=== PATIENT | female | born 1965 | race African-American/Black ===

== ENCOUNTER 2017-07-12 11:05 | Emergency (ER) | payer OTHER, MEDICAID ==
[~2017-07-12] VITALS: Ht 162.6 cm; Wt 50.0 kg
[~2017-07-12 11:05] MED LIST: COPAXONE SQ; LAM2 PO; LEVE1000 PO
[2017-07-12] MEDS ORDERED: SODIUM CHLORIDE 0.9% 1,000 ML IV ONE (11:27)
[2017-07-12] MEDS ORDERED: LEVETIRACETAM 500MG PREMIX 100 ML IV ONE (11:30)
[2017-07-12 12:04] LABS: BASOPHILS % 0.6 % (0.0-2.0); EOSINOPHILS % 0.5 % (0.0-5.0); HEMATOCRIT. 40.4 % (36.0-48.0); HEMOGLOBIN. 13.7 g/dL (12.0-16.0); LYMPHOCYTES % 38.2 % (20.0-50.0); MEAN CORPUSCULAR HEMOGLOBIN 33.6 pg (28.0-32.0); MEAN CORPUSCULAR VOLUME 99.3 fL (81.0-99.0); MEAN PLATELET VOLUME 7.8 fl (7.4-10.4); MONOCYTES % 5.3 % (2.0-8.0); NEUTROPHILS % 55.4 % (40.0-76.0); PLATELET 320 x1000/uL (130-400); RED BLOOD CELL COUNT 4.07 mill/uL (4.2-5.4); RED CELL DISTRIBUTION WIDTH 12.8 % (11.6-14.6)
[2017-07-12 12:05] LABS: CHLORIDE 104 mEq/L (98-107)
[2017-07-12 12:13] LABS: CARBON DIOXIDE 30 mEq/L (21-32)
[2017-07-12 20:29] VITALS: BP 125/78
== END 2017-07-12 20:51 | disposition home or self-care (01) ==
LOC: ER 12:01
DX: R56.9 Unspecified convulsions (principal); F03.90 Unspecified dementia, unspecified severity, without behavioral disturbance, psychotic disturbance, mood disturbance, and anxiety
CPT/HCPCS: 36415; 70450; 71010; 80053; 82962; 85025; 93005; 96365; 99285; J1953; J7030

== ENCOUNTER 2017-07-18 08:44 | Inpatient (IN) | payer OTHER, MEDICAID ==
[2017-07-18] VITALS (7 sets, daily range): BP systolic 117–137; BP diastolic 64–96
[~2017-07-18] VITALS: Ht 162.6 cm; Wt 47.4 kg
[2017-07-18] MEDS ORDERED: SODIUM CHLORIDE 0.9% 1,000 ML IV ONE (08:53)
[2017-07-18] MEDS ORDERED: LEVETIRACETAM 500 MG in SODIUM CHLORIDE 0.9% 100 ML IV STA (08:53)
[2017-07-18 09:18] LABS: BASOPHILS % 0.6 % (0.0-2.0); HEMATOCRIT. 35.9 % (36.0-48.0); HEMOGLOBIN. 12.1 g/dL (12.0-16.0); LYMPHOCYTES % 23.6 % (20.0-50.0); MEAN CORPUSCULAR HEMOGLOBIN 33.2 pg (28.0-32.0); MEAN PLATELET VOLUME 7.7 fl (7.4-10.4); MONOCYTES % 3.8 % (2.0-8.0); PLATELET 338 x1000/uL (130-400); RED BLOOD CELL COUNT 3.63 mill/uL (4.2-5.4); RED CELL DISTRIBUTION WIDTH 12.6 % (11.6-14.6)
[2017-07-18 09:28] LABS: HCG SCREEN NEGATIVE
[2017-07-18 09:30] LABS: INR 1.1; PARTIAL THROMBOPLASTIN TIME 25.9 sec (23.4-31.0); PROTHROMBIN TIME 11.1 sec (9.4-11.6)
[2017-07-18 09:32] LABS: AMMONIA 29 uMol/L (<32)
[2017-07-18 09:35] LABS: GLUCOSE URINE NEGATIVE (NEGATIVE); KETONES URINE NEGATIVE (NEGATIVE); LEUKOCYTE ESTERASE URINE NEGATIVE (NEGATIVE); NITRITE URINE NEGATIVE (NEGATIVE); OCCULT BLOOD URINE NEGATIVE (NEGATIVE); PH URINE 5.5 (4.5-8.0); PROTEIN URINE 1+ (NEGATIVE); SPECIFIC GRAVITY URINE 1.015 (1.005-1.030); UROBILINOGEN URINE 0.2 E.U./dL (0.2-1.0)
[2017-07-18 09:36] LABS: CLARITY URINE CLEAR (CLEAR); COLOR URINE YELLOW (YELLOW)
[2017-07-18 09:37] LABS: CARBAMAZEPINE 8.1 ug/mL (4-12); CARBON DIOXIDE 27 mEq/L (21-32); CHLORIDE 105 mEq/L (98-107); CREATINE KINASE 46 IU/L (26-192); TROPONIN I < 0.02 ng/mL (0.00-0.04)
[2017-07-18] MEDS ORDERED: LEVETIRACETAM 500MG PREMIX 100 ML IV NR (09:45)
[2017-07-18] MEDS ORDERED: LEVETIRACETAM 500 MG in SODIUM CHLORIDE 0.9% 100 ML IV NR (09:45)
[2017-07-18] MEDS ORDERED: CARB200T PO (12:57)
[2017-07-18] MEDS ORDERED: LORAZEPAM 2MG/ML CPJ IV PRN (16:15)
[2017-07-18] MEDS ORDERED: HYDROCODONE/ACETAMINOPHEN 5/325MG TABLET PO PRN (16:30)
[2017-07-18] MEDS ORDERED: ONDANSETRON HCL 4MG/2ML VIAL IV PRN (16:30)
[2017-07-18] MEDS ORDERED: ACETAMINOPHEN 325MG TABLET PO PRN (16:30)
[2017-07-18] MEDS ORDERED: CLONIDINE 0.1MG TABLET PO PRN (16:30)
[2017-07-18] MEDS ORDERED: IPRATROPIUM/ALBUTEROL 0.5-3(2.5)MG/3ML NEB INH PRN (16:30)
[2017-07-18] MEDS: DEXT 5%/0.45% NACL 1000ML 1,000 ML IV SCH (17:44)
[2017-07-18] MEDS: COPAXONE 40 MG/ML SUBCUT SCH (17:45)
[2017-07-18 18:52] LABS: CARBON DIOXIDE 29 mEq/L (21-32); CHLORIDE 104 mEq/L (98-107)
[2017-07-18] MEDS ORDERED: LEVETIRACETAM 500 MG in SODIUM CHLORIDE 0.9% 100 ML IV SCH (21:00)
[2017-07-18] MEDS: LAMOTRIGINE 100MG TABLET PO SCH (21:00)
[2017-07-18] MEDS: LEVETIRACETAM 1,000 MG in SODIUM CHLORIDE 0.9% 100 ML IV SCH (22:50)
[2017-07-18 23:57] LABS: CREATINE KINASE 56 IU/L (26-192); TROPONIN I < 0.02 ng/mL (0.00-0.04)
[2017-07-19] VITALS (12 sets, daily range): BP systolic 90–154; BP diastolic 62–88
[2017-07-19] MEDS: DEXT 5%/0.45% NACL 1000ML 1,000 ML IV SCH ×2 (06:20→16:00)
[2017-07-19 06:41] LABS: BASOPHILS % 0.2 % (0.0-2.0); EOSINOPHILS % 0.3 % (0.0-5.0); HEMATOCRIT. 36.3 % (36.0-48.0); LYMPHOCYTES % 14.6 % (20.0-50.0); MEAN CORPUSCULAR HEMOGLOBIN 33.1 pg (28.0-32.0); MEAN CORPUSCULAR VOLUME 99.9 fL (81.0-99.0); MEAN PLATELET VOLUME 8.2 fl (7.4-10.4); MONOCYTES % 4.5 % (2.0-8.0); NEUTROPHILS % 80.4 % (40.0-76.0); PLATELET 362 x1000/uL (130-400); RED BLOOD CELL COUNT 3.63 mill/uL (4.2-5.4); RED CELL DISTRIBUTION WIDTH 12.8 % (11.6-14.6)
[2017-07-19 07:17] LABS: CREATINE KINASE 49 IU/L (26-192); HDL CHOLESTEROL 89 mg/dL (40-59); LDL CHOLESTEROL 85 mg/dL (5-100); T4 FREE 0.95 ng/dL (0.76-1.46); TROPONIN I < 0.02 ng/mL (0.00-0.04)
[2017-07-19] MEDS: LAMOTRIGINE 100MG TABLET PO SCH ×2 (09:00→21:58)
[2017-07-19] MEDS: LEVETIRACETAM 1,000 MG in SODIUM CHLORIDE 0.9% 100 ML IV SCH (09:57)
[2017-07-19] MEDS: ENOXAPARIN 40MG/0.4ML SYR SUBCUT SCH (10:03)
[2017-07-20] VITALS (11 sets, daily range): BP systolic 95–137; BP diastolic 51–97
[2017-07-20 07:01] LABS: BASOPHILS % 0.6 % (0.0-2.0); EOSINOPHILS % 0.9 % (0.0-5.0); HEMATOCRIT. 34.2 % (36.0-48.0); HEMOGLOBIN. 11.7 g/dL (12.0-16.0); LYMPHOCYTES % 27.8 % (20.0-50.0); MEAN CORPUSCULAR HEMOGLOBIN 33.9 pg (28.0-32.0); MEAN CORPUSCULAR VOLUME 98.7 fL (81.0-99.0); MEAN PLATELET VOLUME 8.6 fl (7.4-10.4); MONOCYTES % 6.8 % (2.0-8.0); NEUTROPHILS % 63.9 % (40.0-76.0); PLATELET 340 x1000/uL (130-400); RED BLOOD CELL COUNT 3.46 mill/uL (4.2-5.4); RED CELL DISTRIBUTION WIDTH 12.5 % (11.6-14.6)
[2017-07-20 07:41] LABS: CARBON DIOXIDE 29 mEq/L (21-32); CHLORIDE 108 mEq/L (98-107)
[2017-07-20] MEDS: DEXT 5%/0.45% NACL 1000ML 1,000 ML IV SCH (08:51)
[2017-07-20] MEDS: LAMOTRIGINE 100MG TABLET PO SCH (08:51)
[2017-07-20] MEDS: ENOXAPARIN 40MG/0.4ML SYR SUBCUT SCH (08:51)
[2017-07-20] MEDS: CARBAMAZEPINE 200MG TABLET PO SCH ×3 (08:51→17:15)
[2017-07-20] MEDS ORDERED: LEVETIRACETAM 500MG TABLET PO SCH (09:00)
[2017-07-20] MEDS: COPAXONE 40 MG/ML SUBCUT SCH (12:30)
[2017-07-21 17:12] LABS: LEVETIRACETAM / KEPPRA 13.6 ug/mL (10.0-40.0)
== END 2017-07-20 19:46 | disposition home or self-care (01) | DRG 101 ==
LOC: ENRESERV 10:02 → EDBEDREQ 10:05 → EDBEDREQTM 10:05 → ER 11:46 → 5EST 11:47
PROVIDERS: ADMIT Internal Medicine; ATTEND Internal Medicine
DX: G40.89 Other seizures (principal); G35 Multiple sclerosis; F03.90 Unspecified dementia, unspecified severity, without behavioral disturbance, psychotic disturbance, mood disturbance, and anxiety; N31.9 Neuromuscular dysfunction of bladder, unspecified; E86.0 Dehydration; R32 Unspecified urinary incontinence; Z74.01 Bed confinement status; Z79.899 Other long term (current) drug therapy
CPT/HCPCS: 36415; 70450; 71010; 80048; 80053; 80061; 80156; 81001; 82140; 82542; 82550; 83690; 83880; 84439; 84443; 84484; 84703; 85025; 85610; 85730; 87086; 92610; 93005; 96374; 99291; C1893; J1650; J1953; J3490; J7030; J7050

== ENCOUNTER 2018-11-10 06:18 | Inpatient (IN) | payer OTHER, MEDICAID ==
[~2018-11-10] VITALS: Ht 170.2 cm; Wt 47.6 kg
[2018-11-10] VITALS (18 sets, daily range): BP systolic 112–173; BP diastolic 6–108
[~2018-11-10 06:18] MED LIST changes: +CARB200T PO; +LEVO88TA7 PO
[2018-11-10] MEDS ORDERED: LEVETIRACETAM 500MG PREMIX 100 ML IV ONE ×2 (06:30)
[2018-11-10] MEDS ORDERED: SODIUM CHLORIDE 0.9% 1000ML BAG (SEPSIS BOLUS) IV ONE ×2 (06:30→07:45)
[2018-11-10] MEDS ORDERED: MIDAZOLAM HCL 50 MG in DEXTROSE 5% WATER 40 ML IV ONE (06:45)
[2018-11-10] MEDS ORDERED: ETOMIDATE 2MG/ML 10ML VIAL IV ONE ×2 (06:45→13:00)
[2018-11-10] MEDS ORDERED: SUCCINYLCHOLINE CHLORIDE 200MG/10ML IV ONE ×2 (06:45→13:00)
[2018-11-10] MEDS ORDERED: PROPOFOL 10MG/ML 100ML 100 ML IV ONE (06:45)
[2018-11-10] MEDS ORDERED: ACETAMINOPHEN 650MG SUPP PR STA (07:40)
[2018-11-10 07:44] LABS: BASOPHILS % 0.3 % (0.0-2.0); EOSINOPHILS % 0.6 % (0.0-5.0); HEMATOCRIT. 37.3 % (36.0-48.0); HEMOGLOBIN. 12.7 g/dL (12.0-16.0); LYMPHOCYTES % 15.3 % (20.0-50.0); MEAN CORPUSCULAR VOLUME 99.9 fL (81.0-99.0); MEAN PLATELET VOLUME 7.6 fl (7.4-10.4); MONOCYTES % 8.4 % (2.0-8.0); NEUTROPHILS % 75.4 % (40.0-76.0); PLATELET 437 x1000/uL (130-400); RED BLOOD CELL COUNT 3.73 mill/uL (4.2-5.4); RED CELL DISTRIBUTION WIDTH 13.1 % (11.6-14.6)
[2018-11-10] MEDS ORDERED: FENTANYL CITRATE/PF 50MCG/ML 2ML VIAL IV ONE (07:45)
[2018-11-10] MEDS ORDERED: PIPERACILLIN/TAZ 3.375G PREMIX 50 ML IV ONE (07:45)
[2018-11-10] MEDS ORDERED: LEVOFLOXACIN 500MG PREMIX 100 ML IV ONE (07:45)
[2018-11-10 07:51] LABS: CHLORIDE 103 mEq/L (98-107)
[2018-11-10 07:52] LABS: PROTHROMBIN TIME 10.3 sec (9.1-11.1)
[2018-11-10 07:55] LABS: ETHANOL BLOOD < 10 mg/dL
[2018-11-10 08:00] LABS: CLARITY URINE CLEAR (CLEAR); COLOR URINE YELLOW (YELLOW); KETONES URINE NEGATIVE (NEGATIVE); LEUKOCYTE ESTERASE URINE NEGATIVE (NEGATIVE); NITRITE URINE NEGATIVE (NEGATIVE); OCCULT BLOOD URINE 1+ (NEGATIVE); PROTEIN URINE 2+ (NEGATIVE); SPECIFIC GRAVITY URINE 1.022 (1.005-1.030)
[2018-11-10 08:00] LABS: CREATINE KINASE 64 IU/L (26-192)
[2018-11-10 08:04] LABS: CREATINE KINASE MB FRACTION < 1.0 ng/mL (0.5-3.6)
[2018-11-10 08:13] LABS: *AMPHETAMINES SCREEN URINE NEGATIVE (NEGATIVE); *BARBITURATES SCREEN URINE NEGATIVE (NEGATIVE); *BENZODIAZEPINES SCREEN URINE PRESUMTIVE POSITIVE (NEGATIVE); *COCAINE SCREEN URINE NEGATIVE (NEGATIVE)
[2018-11-10 08:13] LABS: BG BASE EXCESS 1.9 mmol/L (-2.0-2.0); BG CARBOXYHEMOGLOBIN 0.3 % (0.5-1.5); BG DEOXYHEMOGLOBIN 0.6 % (0.0-5.0); BG FRACTION INSPIRED OXYGEN 100; BG HCO3 ACT 24.2 mmol/L (22.0-26.0); BG METHEMOGLOBIN 0.4 % (0.0-1.5); BG OXYGEN SATURATION 99.4 % (92.0-98.5); BG OXYHEMOGLOBIN 98.7 % (94.0-97.0); BG PCO2 30.4 mmHg (35.0-45.0); BG PH 7.518 (7.350-7.450); BG SAMPLE SITE LEFT RADIAL; BG TIDAL VOLUME(mL) 450 mL; BG TOTAL HEMOGLOBIN 12.2 g/dL (12.0-18.0); BG VENT MODE VENT - A/C; BG VENT RATE 14 set
[2018-11-10 08:14] LABS: CANNABINOID URINE SCREEN NEGATIVE (NEGATIVE); METHADONE URINE SCREEN NEGATIVE (NEGATIVE); OPIATES URINE SCREEN NEGATIVE (NEGATIVE); PHENCYCLIDINE URINE SCREEN NEGATIVE (NEGATIVE)
[2018-11-10] MEDS ORDERED: LORAZEPAM 2MG/ML CPJ IV NR (10:00)
[2018-11-10] MEDS ORDERED: HYDROMORPHONE HCL/PF 2MG/ML CPJ IV PRN (10:00)
[2018-11-10] MEDS ORDERED: CARB200T PO ×2 (11:10)
[2018-11-10] MEDS ORDERED: IPRATROPIUM/ALBUTEROL 0.5-3(2.5)MG/3ML NEB INH PRN (11:15)
[2018-11-10] MEDS ORDERED: MAGNESIUM/ALUMINUM HYDROXIDE/SIMETHICONE 30ML UDC PO PRN (11:15)
[2018-11-10] MEDS ORDERED: ONDANSETRON HCL 4MG/2ML INJ IV PRN (11:15)
[2018-11-10] MEDS ORDERED: HYDROCODONE/ACETAMINOPHEN 5/325MG TABLET PO PRN (11:15)
[2018-11-10] MEDS ORDERED: NA PHOS,M-B/NA PHOS,DI-BA ENEMA 118ML PR PRN (11:15)
[2018-11-10] MEDS ORDERED: DIPHENHYDRAMINE 50MG/ML VIAL IV PRN (11:15)
[2018-11-10] MEDS ORDERED: LORAZEPAM 2MG/ML CPJ IV PRN ×2 (11:15→19:15)
[2018-11-10] MEDS ORDERED: GUAIFENESIN 200MG/10ML SUGAR FREE UDC PO PRN (11:15)
[2018-11-10] MEDS ORDERED: ACETAMINOPHEN 325MG TABLET PO PRN (11:15)
[2018-11-10] MEDS ORDERED: DOCUSATE SODIUM 100MG CAPSULE PO PRN (11:15)
[2018-11-10] MEDS ORDERED: ACETAMINOPHEN 650MG SUPP PR PRN (11:15)
[2018-11-10] MEDS: PANTOPRAZOLE SODIUM 40 MG/VIAL IV SCH (11:48)
[2018-11-10] MEDS: DEXT 5%/0.45% NACL 1000ML 1,000 ML IV SCH (11:49)
[2018-11-10] MEDS: LEVOTHYROXINE SODIUM 88MCG TABLET PO SCH (11:49)
[2018-11-10] MEDS: CLONIDINE 0.1MG TABLET PO PRN (11:49)
[2018-11-10] MEDS: ENOXAPARIN 40MG/0.4ML SYR SUBCUT SCH (11:59)
[2018-11-10] MEDS: PROPOFOL 10MG/ML 100ML 100 ML IV PRN ×2 (12:29→17:31)
[2018-11-10] MEDS: PIPERACILLIN/TAZ 3.375G PREMIX 50 ML IV SCH ×2 (12:47→16:57)
[2018-11-10] MEDS ORDERED: CARBAMAZEPINE 200MG TABLET PO SCH ×2 (13:00→18:00)
[2018-11-10] MEDS: IPRATROPIUM/ALBUTEROL 0.5-3(2.5)MG/3ML NEB INH SCH ×2 (14:16→20:30)
[2018-11-10 15:30] LABS: BG BASE EXCESS -0.9 mmol/L (-2.0-2.0); BG CARBOXYHEMOGLOBIN 0.1 % (0.5-1.5); BG DEOXYHEMOGLOBIN 1.2 % (0.0-5.0); BG FRACTION INSPIRED OXYGEN 50; BG HCO3 ACT 22.7 mmol/L (22.0-26.0); BG METHEMOGLOBIN 0.4 % (0.0-1.5); BG OXYGEN SATURATION 98.8 % (92.0-98.5); BG OXYHEMOGLOBIN 98.3 % (94.0-97.0); BG PCO2 34.1 mmHg (35.0-45.0); BG PH 7.441 (7.350-7.450); BG PO2 166.5 mmHg (75.0-100.0); BG SAMPLE SITE LEFT RADIAL; BG TIDAL VOLUME(mL) 450 mL; BG TOTAL HEMOGLOBIN 12.4 g/dL (12.0-18.0); BG VENT MODE VENT - A/C; BG VENT RATE 14 set
[2018-11-10] MEDS: LAMOTRIGINE 100MG TABLET PO SCH (16:57)
[2018-11-10] MEDS ORDERED: LAMOTRIGINE PO SCH (17:00)
[2018-11-10] MEDS: LEVETIRACETAM 500MG/5ML CUP PO SCH (20:16)
[2018-11-10] MEDS ORDERED: METOPROLOL TARTRATE 25MG TABLET PO SCH (21:00)
[2018-11-10] MEDS: METOPROLOL TARTRATE 25MG TABLET PO SCH (22:20)
[2018-11-10] MEDS: LACTULOSE 20G/30ML UDC PO SCH (22:20)
[2018-11-11] VITALS (25 sets, daily range): BP systolic 134–164; BP diastolic 77–102
[2018-11-11] MEDS: PIPERACILLIN/TAZ 3.375G PREMIX 50 ML IV SCH ×4 (00:08→17:29)
[2018-11-11] MEDS: IPRATROPIUM/ALBUTEROL 0.5-3(2.5)MG/3ML NEB INH SCH ×4 (00:25→20:33)
[2018-11-11] MEDS: DEXT 5%/0.45% NACL 1000ML 1,000 ML IV SCH ×2 (00:46→13:55)
[2018-11-11] MEDS: PROPOFOL 10MG/ML 100ML 100 ML IV PRN ×2 (00:52→09:36)
[2018-11-11] MEDS: CLONIDINE 0.1MG TABLET PO PRN ×2 (03:59→04:02)
[2018-11-11 04:24] LABS: BASOPHILS % 0.3 % (0.0-2.0); HEMATOCRIT. 35.6 % (36.0-48.0); HEMOGLOBIN. 12.1 g/dL (12.0-16.0); LYMPHOCYTES % 11.5 % (20.0-50.0); MEAN CORPUSCULAR HEMOGLOBIN 33.9 pg (28.0-32.0); MEAN CORPUSCULAR VOLUME 99.6 fL (81.0-99.0); MEAN PLATELET VOLUME 7.5 fl (7.4-10.4); MONOCYTES % 7.7 % (2.0-8.0); NEUTROPHILS % 79.5 % (40.0-76.0); PLATELET 417 x1000/uL (130-400); RED BLOOD CELL COUNT 3.57 mill/uL (4.2-5.4); RED CELL DISTRIBUTION WIDTH 13.3 % (11.6-14.6)
[2018-11-11 04:32] LABS: CHLORIDE 105 mEq/L (98-107)
[2018-11-11 04:41] LABS: LDL CHOLESTEROL 65 mg/dL (5-100)
[2018-11-11 04:42] LABS: HDL CHOLESTEROL 84 mg/dL (40-59)
[2018-11-11] MEDS: LACTULOSE 20G/30ML UDC PO SCH ×3 (06:42→21:18)
[2018-11-11] MEDS: LEVOTHYROXINE SODIUM 88MCG TABLET PO SCH ×2 (06:43→09:38)
[2018-11-11 08:32] LABS: BG BASE EXCESS -0.7 mmol/L (-2.0-2.0); BG CARBOXYHEMOGLOBIN 0.6 % (0.5-1.5); BG DEOXYHEMOGLOBIN 9.7 % (0.0-5.0); BG FRACTION INSPIRED OXYGEN 50; BG HCO3 ACT 22.7 mmol/L (22.0-26.0); BG METHEMOGLOBIN 0.3 % (0.0-1.5); BG OXYGEN SATURATION 90.2 % (92.0-98.5); BG OXYHEMOGLOBIN 89.4 % (94.0-97.0); BG PCO2 33.6 mmHg (35.0-45.0); BG PH 7.448 (7.350-7.450); BG PO2 55.1 mmHg (75.0-100.0); BG SAMPLE SITE RIGHT RADIAL; BG TIDAL VOLUME(mL) 450 mL; BG TOTAL HEMOGLOBIN 12.3 g/dL (12.0-18.0); BG VENT MODE VENT - A/C; BG VENT RATE 14 set
[2018-11-11] MEDS ORDERED: CARBAMAZEPINE 200MG TABLET PO SCH (09:00)
[2018-11-11] MEDS: LEVETIRACETAM 500MG/5ML CUP PO SCH ×2 (09:36→21:22)
[2018-11-11] MEDS: PANTOPRAZOLE SODIUM 40 MG/VIAL IV SCH (09:37)
[2018-11-11] MEDS: METOPROLOL TARTRATE 25MG TABLET PO SCH (09:38)
[2018-11-11] MEDS: LAMOTRIGINE 100MG TABLET PO SCH ×2 (09:38→16:38)
[2018-11-11] MEDS: ENOXAPARIN 40MG/0.4ML SYR SUBCUT SCH (11:52)
[2018-11-11] MEDS: CARBAMAZEPINE 200MG TABLET PO SCH ×3 (13:00→21:21)
[2018-11-11] MEDS ORDERED: POTASSIUM CHLORIDE 20MEQ/PACKET PEG NR (13:00)
[2018-11-11] MEDS ORDERED: LORAZEPAM 2MG/ML CPJ IV PRN (13:00)
[2018-11-11] MEDS ORDERED: LACTULOSE 20G/30ML UDC PO NR (13:15)
[2018-11-11 16:42] LABS: BG BASE EXCESS -1.6 mmol/L (-2.0-2.0); BG CARBOXYHEMOGLOBIN 0.3 % (0.5-1.5); BG DEOXYHEMOGLOBIN 1.1 % (0.0-5.0); BG FRACTION INSPIRED OXYGEN 65; BG HCO3 ACT 22.6 mmol/L (22.0-26.0); BG METHEMOGLOBIN 0.5 % (0.0-1.5); BG OXYGEN SATURATION 98.9 % (92.0-98.5); BG OXYHEMOGLOBIN 98.1 % (94.0-97.0); BG PCO2 36.8 mmHg (35.0-45.0); BG PH 7.407 (7.350-7.450); BG PO2 230.6 mmHg (75.0-100.0); BG PRESSURE SUPPORT 10; BG SAMPLE SITE RIGHT RADIAL; BG TOTAL HEMOGLOBIN 12.1 g/dL (12.0-18.0); BG VENT MODE VENT - CPAP
[2018-11-11] MEDS: METOPROLOL TARTRATE 50MG TABLET PO SCH (21:00)
[2018-11-12] VITALS (29 sets, daily range): BP systolic 108–159; BP diastolic 46–92
[2018-11-12 00:59] LABS: BG BASE EXCESS -0.5 mmol/L (-2.0-2.0); BG CARBOXYHEMOGLOBIN 0.8 % (0.5-1.5); BG DEOXYHEMOGLOBIN 0.9 % (0.0-5.0); BG FRACTION INSPIRED OXYGEN 40; BG HCO3 ACT 23.9 mmol/L (22.0-26.0); BG METHEMOGLOBIN 0.5 % (0.0-1.5); BG OXYGEN SATURATION 99.1 % (92.0-98.5); BG OXYHEMOGLOBIN 97.8 % (94.0-97.0); BG PCO2 38.7 mmHg (35.0-45.0); BG PH 7.409 (7.350-7.450); BG PO2 213.4 mmHg (75.0-100.0); BG SAMPLE SITE RIGHT RADIAL; BG TOTAL HEMOGLOBIN 14.8 g/dL (12.0-18.0); BG VENT MODE MASK - AEROSOL
[2018-11-12] MEDS: IPRATROPIUM/ALBUTEROL 0.5-3(2.5)MG/3ML NEB INH SCH ×4 (02:34→21:31)
[2018-11-12] MEDS: DEXT 5%/0.45% NACL 1000ML 1,000 ML IV SCH (03:17)
[2018-11-12 04:46] LABS: HEMATOCRIT 36.4 % (36.0-48.0); MEAN CORPUSCULAR HEMOGLOBIN 33.4 pg (28.0-32.0); MEAN CORPUSCULAR VOLUME 101.3 fL (81.0-99.0); PLATELET 409 x1000/uL (130-400); RED BLOOD CELL COUNT 3.59 mill/uL (4.2-5.4); RED CELL DISTRIBUTION WIDTH 13.1 % (11.6-14.6)
[2018-11-12 04:51] LABS: CHLORIDE 111 mEq/L (98-107)
[2018-11-12 04:56] LABS: PHOSPHORUS 2.6 mg/dL (2.5-4.9)
[2018-11-12] MEDS: LACTULOSE 20G/30ML UDC PO SCH ×3 (05:32→21:44)
[2018-11-12] MEDS: PIPERACILLIN/TAZ 3.375G PREMIX 50 ML IV SCH ×4 (05:33→21:43)
[2018-11-12 08:00] LABS: BG BASE EXCESS 0.8 mmol/L (-2.0-2.0); BG CARBOXYHEMOGLOBIN 0.1 % (0.5-1.5); BG DEOXYHEMOGLOBIN 1.3 % (0.0-5.0); BG FRACTION INSPIRED OXYGEN 28; BG HCO3 ACT 25.3 mmol/L (22.0-26.0); BG OXYGEN SATURATION 98.7 % (92.0-98.5); BG OXYHEMOGLOBIN 98.6 % (94.0-97.0); BG PCO2 40.3 mmHg (35.0-45.0); BG PH 7.416 (7.350-7.450); BG PO2 160.9 mmHg (75.0-100.0); BG SAMPLE SITE RIGHT RADIAL; BG VENT MODE NASAL CANNULA
[2018-11-12] MEDS: LEVOTHYROXINE SODIUM 88MCG TABLET PO SCH (09:07)
[2018-11-12] MEDS: LAMOTRIGINE 100MG TABLET PO SCH ×2 (09:08→19:17)
[2018-11-12] MEDS: METOPROLOL TARTRATE 50MG TABLET PO SCH ×2 (09:08→21:44)
[2018-11-12] MEDS: PANTOPRAZOLE SODIUM 40 MG/VIAL IV SCH (09:08)
[2018-11-12] MEDS: CARBAMAZEPINE 200MG TABLET PO SCH ×2 (09:08→12:47)
[2018-11-12] MEDS: LEVETIRACETAM 500MG/5ML CUP PO SCH ×2 (09:08→21:44)
[2018-11-12] MEDS: ENOXAPARIN 40MG/0.4ML SYR SUBCUT SCH (12:00)
[2018-11-12] MEDS ORDERED: HYDROCODONE/ACETAMINOPHEN 5/325MG TABLET PO PRN (18:00)
[2018-11-13] VITALS: BP 142/66
[2018-11-13] MEDS: IPRATROPIUM/ALBUTEROL 0.5-3(2.5)MG/3ML NEB INH SCH (02:08)
[2018-11-13 04:00] VITALS: BP 133/70
[2018-11-13 05:44] LABS: HEMATOCRIT 31.6 % (36.0-48.0); HEMOGLOBIN 10.9 g/dL (12.0-16.0); MEAN CORPUSCULAR HEMOGLOBIN 34.3 pg (28.0-32.0); MEAN CORPUSCULAR VOLUME 99.6 fL (81.0-99.0); PLATELET 468 x1000/uL (130-400); RED BLOOD CELL COUNT 3.17 mill/uL (4.2-5.4); RED CELL DISTRIBUTION WIDTH 12.9 % (11.6-14.6)
[2018-11-13 05:53] LABS: CHLORIDE 107 mEq/L (98-107)
[2018-11-13] MEDS: LEVOTHYROXINE SODIUM 88MCG TABLET PO SCH (06:27)
[2018-11-13] MEDS: LACTULOSE 20G/30ML UDC PO SCH ×2 (06:27→13:43)
[2018-11-13] MEDS: PIPERACILLIN/TAZ 3.375G PREMIX 50 ML IV SCH ×3 (06:29→11:41)
[2018-11-13 08:38] VITALS: BP 121/68
[2018-11-13] MEDS: LEVETIRACETAM 500MG/5ML CUP PO SCH (08:42)
[2018-11-13] MEDS: LAMOTRIGINE 100MG TABLET PO SCH (08:43)
[2018-11-13] MEDS: CARBAMAZEPINE 200MG TABLET PO SCH ×2 (08:43→13:43)
[2018-11-13] MEDS: METOPROLOL TARTRATE 50MG TABLET PO SCH (08:43)
[2018-11-13] MEDS: PANTOPRAZOLE SODIUM 40 MG/VIAL IV SCH (08:47)
[2018-11-13] MEDS ORDERED: COPAXONE 40 MG/ML SQ SCH (09:00)
[2018-11-13] MEDS ORDERED: COPAXONE 40 MG SQ SCH (09:00)
[2018-11-13] MEDS ORDERED: POTASSIUM CHLORIDE 20MEQ TABLET SR PO SCH (11:15)
[2018-11-13] MEDS: ENOXAPARIN 40MG/0.4ML SYR SUBCUT SCH (11:41)
[2018-11-13 13:00] VITALS: BP 113/58
[2018-11-13 13:25] VITALS: BP 113/58
[2018-11-15 09:06] LABS: LEVETIRACETAM / KEPPRA 11.1 ug/mL (10.0-40.0)
[2018-11-15 15:06] LABS: LAMOTIGINE (LAMICTAL) 2.6 ug/mL (2.0-20.0)
== END 2018-11-13 15:15 | disposition home or self-care (01) | DRG 208 ==
LOC: ER 06:18 → EDBEDREQ 06:42 → CVICU 07:37 → EDBEDREQ 07:43 → 6WST 11-12 16:29
PROVIDERS: ADMIT Internal Medicine; ATTEND Internal Medicine
PROC: 5A1945Z Respiratory Ventilation, 24-96 Consecutive Hours (ICD-10-PCS; principal; 2018-11-10)
PROC: 0BH17EZ Insertion of Endotracheal Airway into Trachea, Via Natural or Artificial Opening (ICD-10-PCS; 2018-11-10)
PROC: 0CJS8ZZ Inspection of Larynx, Via Natural or Artificial Opening Endoscopic (ICD-10-PCS; 2018-11-10)
DX: J96.01 Acute respiratory failure with hypoxia (principal); E72.20 Disorder of urea cycle metabolism, unspecified; E87.2 Acidosis; G40.901 Epilepsy, unspecified, not intractable, with status epilepticus; G40.401 Other generalized epilepsy and epileptic syndromes, not intractable, with status epilepticus; Z74.01 Bed confinement status; G35 Multiple sclerosis; R73.9 Hyperglycemia, unspecified; R41.89 Other symptoms and signs involving cognitive functions and awareness; R00.0 Tachycardia, unspecified; E87.6 Hypokalemia; I10 Essential (primary) hypertension; E03.9 Hypothyroidism, unspecified; D64.9 Anemia, unspecified; L89.90 Pressure ulcer of unspecified site, unspecified stage; Z87.440 Personal history of urinary (tract) infections; Z79.899 Other long term (current) drug therapy
CPT/HCPCS: 31500; 36415; 36600; 71045; 80048; 80061; 80156; 80305; 82140; 82375; 82542; 82550; 82553; 82805; 83036; 83605; 83735; 83880; 84100; 84145; 84439; 84443; 84478; 84484; 85027; 87070; 87804; 93005; 93306; 93880; 93970; 94002; 94003; 94640; 96365; 96367; 97162; 99291; C9113; G0482; J0330; J1170; J1650; J1953; J1956; J2060; J2250; J2543; J2704; J3010; J3490; J7030; J7050; J7060; J7620

== ENCOUNTER 2019-06-30 09:45 | Inpatient (IN) | payer MEDICARE, MEDICAID ==
[~2019-06-30] VITALS: Ht 162.6 cm; Wt 58.1 kg
[~2019-06-30 09:45] MED LIST changes: +LIDOCAINE HCL/PF 1% 2ML VIAL ONE
[2019-06-30] MEDS ORDERED: LEVETIRACETAM 1000MG/100ML 100 ML IV ONE (10:00)
[2019-06-30 10:28] LABS: BASOPHILS % 0.7 % (0.0-2.0); EOSINOPHILS % 1.7 % (0.0-5.0); HEMATOCRIT. 39.4 % (36.0-48.0); HEMOGLOBIN. 13.7 g/dL (12.0-16.0); LYMPHOCYTES % 39.3 % (20.0-50.0); MEAN CORPUSCULAR VOLUME 100.6 fL (81.0-99.0); MEAN PLATELET VOLUME 6.8 fl (7.4-10.4); MONOCYTES % 7.5 % (2.0-8.0); NEUTROPHILS % 50.8 % (40.0-76.0); PLATELET 382 x1000/uL (130-400); RED BLOOD CELL COUNT 3.91 mill/uL (4.2-5.4); RED CELL DISTRIBUTION WIDTH 12.9 % (11.6-14.6)
[2019-06-30 10:36] LABS: PROTHROMBIN TIME 10.5 sec (9.6-11.0)
[2019-06-30 10:43] LABS: CHLORIDE 99 mEq/L (98-107)
[2019-06-30 10:49] LABS: BG BASE EXCESS 0.6 mmol/L (-2.0-2.0); BG CARBOXYHEMOGLOBIN 0.3 % (0.5-1.5); BG DEOXYHEMOGLOBIN 1.1 % (0.0-5.0); BG HCO3 ACT 25.1 mmol/L (22.0-26.0); BG METHEMOGLOBIN 0.2 % (0.0-1.5); BG OXYGEN SATURATION 98.9 % (92.0-98.5); BG OXYHEMOGLOBIN 98.4 % (94.0-97.0); BG PCO2 40.1 mmHg (35.0-45.0); BG PH 7.415 (7.350-7.450); BG PO2 158.5 mmHg (75.0-100.0); BG SAMPLE SITE RIGHT RADIAL; BG VENT MODE NASAL CANNULA
[2019-06-30 10:51] LABS: ETHANOL BLOOD < 10 mg/dL
[2019-06-30 11:04] LABS: CARBAMAZEPINE 10.9 ug/mL (4-12)
[2019-06-30 11:05] LABS: CREATINE KINASE 183 IU/L (26-192)
[2019-06-30 14:06] VITALS: BP 143/96
[2019-06-30 16:00] VITALS: BP 141/76
[2019-06-30] MEDS ORDERED: LAMOTRIGINE PO SCH (17:00)
[2019-06-30] MEDS: LAMOTRIGINE 100MG TABLET PO SCH (17:20)
[2019-06-30] MEDS: CARBAMAZEPINE 200MG TABLET PO SCH (17:20)
[2019-06-30 18:00] VITALS: BP 146/78
[2019-06-30 20:00] VITALS: BP 150/89
[2019-06-30] MEDS ORDERED: ACETAMINOPHEN 325MG TABLET PO PRN (21:00)
[2019-06-30 22:00] VITALS: BP 158/80
[2019-07-01] VITALS (12 sets, daily range): BP systolic 126–160; BP diastolic 69–92
[2019-07-01 06:07] LABS: CHLORIDE 101 mEq/L (98-107)
[2019-07-01 06:21] LABS: BASOPHILS % 0.3 % (0.0-2.0); EOSINOPHILS % 0.7 % (0.0-5.0); HEMATOCRIT. 38.5 % (36.0-48.0); HEMOGLOBIN. 13.4 g/dL (12.0-16.0); LYMPHOCYTES % 16.8 % (20.0-50.0); MEAN CORPUSCULAR HEMOGLOBIN 34.7 pg (28.0-32.0); MEAN CORPUSCULAR VOLUME 100.1 fL (81.0-99.0); MEAN PLATELET VOLUME 7.3 fl (7.4-10.4); MONOCYTES % 6.2 % (2.0-8.0); PLATELET 383 x1000/uL (130-400); RED BLOOD CELL COUNT 3.85 mill/uL (4.2-5.4); RED CELL DISTRIBUTION WIDTH 12.9 % (11.6-14.6)
[2019-07-01] MEDS ORDERED: LEVOTHYROXINE SODIUM 88MCG TABLET PO SCH (06:50)
[2019-07-01] MEDS: LAMOTRIGINE 100MG TABLET PO SCH ×2 (08:24→17:33)
[2019-07-01] MEDS ORDERED: CARBAMAZEPINE 200MG TABLET PO SCH ×2 (09:00→12:20)
[2019-07-01] MEDS ORDERED: LEVETIRACETAM 500MG/5ML CUP PO SCH (09:00)
[2019-07-01] MEDS ORDERED: NON FORMULARY PATIENT HOME MED XX SCH (16:00)
[2019-07-01] MEDS: CARBAMAZEPINE 200MG TABLET PO SCH (17:35)
[2019-07-01] MEDS ORDERED: HEPARIN 5000 UNITS/ML VIAL SUBCUT SCH (21:00)
[2019-07-02] MEDS ORDERED: GLATIRAMER 40 MG/ML SQ SCH (09:00)
== END 2019-07-01 19:20 | disposition home health service (06) | DRG 100 ==
LOC: ER 09:45 → 3WST 11:32 → EDBEDREQ 11:37 → EDBEDREQSVC 11:37 → EDBEDREQTM 11:37 → ENRESERV 12:02
PROVIDERS: ADMIT Ophthalmology; ATTEND Ophthalmology
DX: G40.409 Other generalized epilepsy and epileptic syndromes, not intractable, without status epilepticus (principal); G93.41 Metabolic encephalopathy; G35 Multiple sclerosis; R40.2420 Glasgow coma scale score 9-12, unspecified time; I10 Essential (primary) hypertension; Z74.01 Bed confinement status; Z79.899 Other long term (current) drug therapy
CPT/HCPCS: 36415; 36600; 71045; 80048; 80156; 80320; 82375; 82542; 82550; 82805; 83735; 83880; 84484; 93005; 96365; 99285; J1953; J3490; G0480

== ENCOUNTER 2019-10-13 00:39 | Inpatient (IN) | payer MEDICARE, MEDICAID ==
[~2019-10-13] VITALS: Ht 172.7 cm; Wt 52.6 kg
[2019-10-13] VITALS (36 sets, daily range): BP systolic 114–154; BP diastolic 46–98
[~2019-10-13 00:39] MED LIST changes: -LIDOCAINE HCL/PF 1% 2ML VIAL ONE
[2019-10-13 01:19] LABS: BASOPHILS % 0.3 % (0.0-2.0); EOSINOPHILS % 1.1 % (0.0-5.0); HEMATOCRIT. 36.7 % (36.0-48.0); HEMOGLOBIN. 12.6 g/dL (12.0-16.0); LYMPHOCYTES % 20.8 % (20.0-50.0); MEAN CORPUSCULAR HEMOGLOBIN 34.6 pg (28.0-32.0); MEAN CORPUSCULAR VOLUME 100.6 fL (81.0-99.0); MEAN PLATELET VOLUME 6.8 fl (7.4-10.4); MONOCYTES % 7.1 % (2.0-8.0); NEUTROPHILS % 70.7 % (40.0-76.0); PLATELET 551 x1000/uL (130-400); RED BLOOD CELL COUNT 3.64 mill/uL (4.2-5.4); RED CELL DISTRIBUTION WIDTH 12.5 % (11.6-14.6)
[2019-10-13 01:33] LABS: CHLORIDE 96 mEq/L (98-107)
[2019-10-13 01:38] LABS: ETHANOL BLOOD < 10 mg/dL
[2019-10-13 01:42] LABS: CREATINE KINASE 83 IU/L (26-192)
[2019-10-13] MEDS ORDERED: LEVETIRACETAM 500MG PREMIX 100 ML IV ONE (06:00)
[2019-10-13 06:19] LABS: *AMPHETAMINES SCREEN URINE NEGATIVE (NEGATIVE); *BARBITURATES SCREEN URINE NEGATIVE (NEGATIVE); CANNABINOID URINE SCREEN NEGATIVE (NEGATIVE); OPIATES URINE SCREEN NEGATIVE (NEGATIVE); PHENCYCLIDINE URINE SCREEN NEGATIVE (NEGATIVE)
[2019-10-13 06:20] LABS: *BENZODIAZEPINES SCREEN URINE PRESUMTIVE POSITIVE (NEGATIVE); *COCAINE SCREEN URINE NEGATIVE (NEGATIVE); METHADONE URINE SCREEN NEGATIVE (NEGATIVE)
[2019-10-13 07:55] LABS: CLARITY URINE CLOUDY (CLEAR); COLOR URINE YELLOW (YELLOW)
[2019-10-13 07:56] LABS: KETONES URINE 1+ (NEGATIVE); LEUKOCYTE ESTERASE URINE NEGATIVE (NEGATIVE); NITRITE URINE NEGATIVE (NEGATIVE); OCCULT BLOOD URINE NEGATIVE (NEGATIVE); PH URINE 8.5 (4.5-8.0); PROTEIN URINE 2+ (NEGATIVE); SPECIFIC GRAVITY URINE 1.016 (1.005-1.030); UROBILINOGEN URINE 0.2 E.U./dL (0.2-1.0)
[2019-10-13] MEDS ORDERED: LORAZEPAM 2MG/ML CPJ IV NR (11:15)
[2019-10-13] MEDS ORDERED: LORAZEPAM 2MG/ML CPJ ONE (11:15)
[2019-10-13 11:43] LABS: BG CARBOXYHEMOGLOBIN 0.2 % (0.5-1.5); BG DEOXYHEMOGLOBIN 0.8 % (0.0-5.0); BG FRACTION INSPIRED OXYGEN 100; BG HCO3 ACT 24.6 mmol/L (22.0-26.0); BG METHEMOGLOBIN 0.6 % (0.0-1.5); BG OXYGEN SATURATION 99.2 % (92.0-98.5); BG OXYHEMOGLOBIN 98.4 % (94.0-97.0); BG PH 7.268 (7.350-7.450); BG PO2 275.1 mmHg (75.0-100.0); BG SAMPLE SITE RIGHT RADIAL; BG TOTAL HEMOGLOBIN 12.7 g/dL (12.0-18.0); BG VENT MODE MASK - NRB
[2019-10-13] MEDS ORDERED: LORAZEPAM 2MG/ML CPJ IV PRN (12:45)
[2019-10-13] MEDS ORDERED: LACTULOSE 20G/30ML UDC PO NR (12:45)
[2019-10-13] MEDS ORDERED: PHENYTOIN SODIUM 1,000 MG in SODIUM CHLORIDE 0.9% 100 ML IV NR (13:00)
[2019-10-13] MEDS: PROPOFOL 10MG/ML 100ML 100 ML IV PRN ×2 (13:26→23:35)
[2019-10-13] MEDS: DEXT 5%/0.9% NACL 1,000 ML IV SCH (13:38)
[2019-10-13] MEDS: CARBAMAZEPINE 200MG TABLET PO SCH ×2 (13:53→17:03)
[2019-10-13] MEDS: PHENYTOIN SODIUM 100MG/2ML VIAL IV SCH ×2 (13:53→21:06)
[2019-10-13 15:30] LABS: BG BASE EXCESS 0.5 mmol/L (-2.0-2.0); BG CARBOXYHEMOGLOBIN 0.2 % (0.5-1.5); BG DEOXYHEMOGLOBIN 0.7 % (0.0-5.0); BG FRACTION INSPIRED OXYGEN 80; BG HCO3 ACT 22.1 mmol/L (22.0-26.0); BG METHEMOGLOBIN 0.4 % (0.0-1.5); BG OXYGEN SATURATION 99.3 % (92.0-98.5); BG OXYHEMOGLOBIN 98.7 % (94.0-97.0); BG PCO2 27.2 mmHg (35.0-45.0); BG PH 7.528 (7.350-7.450); BG PO2 382.2 mmHg (75.0-100.0); BG SAMPLE SITE RIGHT RADIAL; BG TIDAL VOLUME(mL) 500 mL; BG TOTAL HEMOGLOBIN 12.3 g/dL (12.0-18.0); BG VENT MODE VENT - A/C; BG VENT RATE 16 set
[2019-10-13] MEDS ORDERED: HYDROCODONE/ACETAMINOPHEN 5/325MG TABLET PO PRN (16:45)
[2019-10-13] MEDS ORDERED: HYDRALAZINE 20MG/ML VIAL IV PRN (16:45)
[2019-10-13] MEDS ORDERED: ACETAMINOPHEN 650MG SUPP PR PRN (16:45)
[2019-10-13] MEDS ORDERED: LACTULOSE 20G/30ML UDC PO PRN (16:45)
[2019-10-13] MEDS ORDERED: ACETAMINOPHEN 325MG TABLET PO PRN (16:45)
[2019-10-13] MEDS ORDERED: DIPHENHYDRAMINE 50MG/ML VIAL IV PRN (16:45)
[2019-10-13] MEDS ORDERED: IPRATROPIUM/ALBUTEROL 0.5-3(2.5)MG/3ML NEB HHN PRN (16:45)
[2019-10-13] MEDS ORDERED: LAMOTRIGINE PO SCH (17:00)
[2019-10-13] MEDS: LAMOTRIGINE 100MG TABLET PO SCH (17:03)
[2019-10-13 18:00] LABS: HEMATOCRIT. 34.8 % (36.0-48.0); MEAN CORPUSCULAR HEMOGLOBIN 34.1 pg (28.0-32.0); MEAN CORPUSCULAR VOLUME 98.8 fL (81.0-99.0); MEAN PLATELET VOLUME 7.3 fl (7.4-10.4); PLATELET 550 x1000/uL (130-400); RED BLOOD CELL COUNT 3.52 mill/uL (4.2-5.4); RED CELL DISTRIBUTION WIDTH 12.5 % (11.6-14.6)
[2019-10-13 18:19] LABS: CHLORIDE 99 mEq/L (98-107)
[2019-10-13 18:24] LABS: INR 1.1; PROTHROMBIN TIME 10.9 sec (9.6-11.0)
[2019-10-13 18:28] LABS: CREATINE KINASE 418 IU/L (26-192)
[2019-10-13 18:30] LABS: CREATINE KINASE MB FRACTION 5.5 ng/mL (0.5-3.6)
[2019-10-13] MEDS: PIPERACILLIN/TAZOBACTAM 3.375 G in DEXT 5% WATER 100 ML IV SCH ×2 (18:56→23:34)
[2019-10-13] MEDS: IPRATROPIUM/ALBUTEROL 0.5-3(2.5)MG/3ML NEB HHN SCH (19:59)
[2019-10-13] MEDS: LEVETIRACETAM 1,000 MG in SODIUM CHLORIDE 0.9% 100 ML IV SCH (21:06)
[2019-10-14] VITALS (78 sets, daily range): BP systolic 106–207; BP diastolic 17–113
[2019-10-14 00:10] LABS: ATYPICAL LYMPHOCYTES 1; PLATELET ESTIMATE INCREASED
[2019-10-14] MEDS: IPRATROPIUM/ALBUTEROL 0.5-3(2.5)MG/3ML NEB HHN SCH ×4 (01:53→20:37)
[2019-10-14] MEDS: DEXT 5%/0.9% NACL 1,000 ML IV SCH ×2 (03:17→15:46)
[2019-10-14 05:38] LABS: HEMATOCRIT 34.3 % (36.0-48.0); HEMOGLOBIN 11.7 g/dL (12.0-16.0); MEAN CORPUSCULAR HEMOGLOBIN 34.1 pg (28.0-32.0); MEAN CORPUSCULAR VOLUME 100.6 fL (81.0-99.0); PLATELET 485 x1000/uL (130-400); RED BLOOD CELL COUNT 3.41 mill/uL (4.2-5.4); RED CELL DISTRIBUTION WIDTH 12.8 % (11.6-14.6)
[2019-10-14 05:39] LABS: CHLORIDE 102 mEq/L (98-107)
[2019-10-14] MEDS: PIPERACILLIN/TAZOBACTAM 3.375 G in DEXT 5% WATER 100 ML IV SCH ×3 (05:43→17:58)
[2019-10-14] MEDS: PHENYTOIN SODIUM 100MG/2ML VIAL IV SCH (05:44)
[2019-10-14] MEDS: LEVOTHYROXINE SODIUM 88MCG TABLET PO SCH (07:50)
[2019-10-14] MEDS: LAMOTRIGINE 100MG TABLET PO SCH ×2 (08:20→17:03)
[2019-10-14] MEDS: CARBAMAZEPINE 200MG TABLET PO SCH ×3 (08:20→17:58)
[2019-10-14 09:08] LABS: BG BASE EXCESS 0.2 mmol/L (-2.0-2.0); BG CARBOXYHEMOGLOBIN 0.2 % (0.5-1.5); BG DEOXYHEMOGLOBIN 1.1 % (0.0-5.0); BG FRACTION INSPIRED OXYGEN 40; BG HCO3 ACT 23.2 mmol/L (22.0-26.0); BG METHEMOGLOBIN 0.6 % (0.0-1.5); BG OXYGEN SATURATION 98.9 % (92.0-98.5); BG OXYHEMOGLOBIN 98.1 % (94.0-97.0); BG PCO2 32.3 mmHg (35.0-45.0); BG PH 7.474 (7.350-7.450); BG PO2 192.9 mmHg (75.0-100.0); BG SAMPLE SITE RIGHT RADIAL; BG TIDAL VOLUME(mL) 450 mL; BG TOTAL HEMOGLOBIN 12.6 g/dL (12.0-18.0); BG VENT MODE VENT - A/C; BG VENT RATE 12 set
[2019-10-14] MEDS: LEVETIRACETAM 1,000 MG in SODIUM CHLORIDE 0.9% 100 ML IV SCH ×2 (09:36→21:10)
[2019-10-14] MEDS ORDERED: ETOMIDATE 2MG/ML 10ML VIAL IV ONE (11:00)
[2019-10-14] MEDS ORDERED: SUCCINYLCHOLINE CHLORIDE 200MG/10ML IV ONE (11:00)
[2019-10-14] MEDS: PROPOFOL 10MG/ML 100ML 100 ML IV PRN (11:18)
[2019-10-14 15:15] LABS: BG BASE EXCESS -1.7 mmol/L (-2.0-2.0); BG CARBOXYHEMOGLOBIN 0.1 % (0.5-1.5); BG DEOXYHEMOGLOBIN 1.2 % (0.0-5.0); BG FRACTION INSPIRED OXYGEN 40; BG HCO3 ACT 22.2 mmol/L (22.0-26.0); BG METHEMOGLOBIN 0.4 % (0.0-1.5); BG OXYGEN SATURATION 98.8 % (92.0-98.5); BG OXYHEMOGLOBIN 98.3 % (94.0-97.0); BG PCO2 34.8 mmHg (35.0-45.0); BG PH 7.423 (7.350-7.450); BG PO2 190.7 mmHg (75.0-100.0); BG PRESSURE SUPPORT 10; BG SAMPLE SITE RIGHT RADIAL; BG TOTAL HEMOGLOBIN 12.1 g/dL (12.0-18.0); BG VENT MODE VENT - CPAP
[2019-10-14] MEDS ORDERED: METOPROLOL TARTRATE 5MG/5ML VIAL IV NR (15:15)
[2019-10-14] MEDS ORDERED: LACTULOSE 20G/30ML UDC PO NR (15:15)
[2019-10-14] MEDS ORDERED: VANCOMYCIN 1 G PREMIX 200 ML IV NR (16:30)
[2019-10-14 18:23] LABS: BG BASE EXCESS -2.1 mmol/L (-2.0-2.0); BG CARBOXYHEMOGLOBIN 0.2 % (0.5-1.5); BG DEOXYHEMOGLOBIN 1.5 % (0.0-5.0); BG FRACTION INSPIRED OXYGEN 40; BG HCO3 ACT 22.1 mmol/L (22.0-26.0); BG METHEMOGLOBIN 0.5 % (0.0-1.5); BG OXYGEN SATURATION 98.5 % (92.0-98.5); BG OXYHEMOGLOBIN 97.8 % (94.0-97.0); BG PCO2 35.9 mmHg (35.0-45.0); BG PH 7.407 (7.350-7.450); BG PO2 145.5 mmHg (75.0-100.0); BG SAMPLE SITE RIGHT RADIAL; BG TOTAL HEMOGLOBIN 12.2 g/dL (12.0-18.0); BG VENT MODE MASK - AEROSOL
[2019-10-14 20:37] LABS: CREATINE KINASE MB FRACTION 2.3 ng/mL (0.5-3.6)
[2019-10-14] MEDS: METOPROLOL TARTRATE 25MG TABLET PO SCH (21:11)
[2019-10-15] VITALS (24 sets, daily range): BP systolic 114–163; BP diastolic 24–103
[2019-10-15] MEDS: PIPERACILLIN/TAZOBACTAM 3.375 G in DEXT 5% WATER 100 ML IV SCH ×5 (00:20→23:13)
[2019-10-15] MEDS: VANCOMYCIN 750 MG PREMIX 150 ML IV SCH ×3 (00:20→15:53)
[2019-10-15] MEDS: IPRATROPIUM/ALBUTEROL 0.5-3(2.5)MG/3ML NEB HHN SCH ×4 (01:56→20:25)
[2019-10-15] MEDS: DEXT 5%/0.9% NACL 1,000 ML IV SCH ×2 (05:40→16:55)
[2019-10-15 07:14] LABS: HEMATOCRIT. 31.1 % (36.0-48.0); HEMOGLOBIN. 10.5 g/dL (12.0-16.0); MEAN CORPUSCULAR VOLUME 101.1 fL (81.0-99.0); MEAN PLATELET VOLUME 7.4 fl (7.4-10.4); PLATELET 435 x1000/uL (130-400); RED BLOOD CELL COUNT 3.08 mill/uL (4.2-5.4); RED CELL DISTRIBUTION WIDTH 12.7 % (11.6-14.6)
[2019-10-15 07:16] LABS: CHLORIDE 109 mEq/L (98-107)
[2019-10-15] MEDS: LEVETIRACETAM 1,000 MG in SODIUM CHLORIDE 0.9% 100 ML IV SCH ×2 (08:41→21:36)
[2019-10-15] MEDS: METOPROLOL TARTRATE 25MG TABLET PO SCH ×2 (08:42→21:37)
[2019-10-15] MEDS: CARBAMAZEPINE 200MG TABLET PO SCH ×3 (08:42→16:56)
[2019-10-15] MEDS: LEVOTHYROXINE SODIUM 88MCG TABLET PO SCH (08:42)
[2019-10-15] MEDS: LAMOTRIGINE 100MG TABLET PO SCH ×2 (08:42→15:54)
[2019-10-15] MEDS ORDERED: COPAXONE 40 MG SQ SCH (09:00)
[2019-10-15] MEDS ORDERED: POTASSIUM CHLORIDE 20MEQ TABLET SR PO NR (11:56)
[2019-10-15 12:54] LABS: PLATELET ESTIMATE INCREASED
[2019-10-15] MEDS: PHENYTOIN SODIUM EXTENDED 100MG CAPSULE PO SCH (21:36)
[2019-10-16] VITALS: BP 130/70
[2019-10-16] MEDS: VANCOMYCIN 750 MG PREMIX 150 ML IV SCH ×2 (00:15→09:51)
[2019-10-16] MEDS: IPRATROPIUM/ALBUTEROL 0.5-3(2.5)MG/3ML NEB HHN SCH ×4 (03:15→20:55)
[2019-10-16 04:00] VITALS: BP 135/59
[2019-10-16] MEDS: PIPERACILLIN/TAZOBACTAM 3.375 G in DEXT 5% WATER 100 ML IV SCH ×3 (05:45→17:26)
[2019-10-16 06:53] LABS: CHLORIDE 107 mEq/L (98-107)
[2019-10-16 07:00] LABS: VANCOMYCIN TROUGH 17.3 ug/mL (5.0-10.0)
[2019-10-16] MEDS: LEVOTHYROXINE SODIUM 88MCG TABLET PO SCH (07:40)
[2019-10-16 08:00] VITALS: BP 105/60
[2019-10-16 08:46] LABS: BG BASE EXCESS 3.8 mmol/L (-2.0-2.0); BG CARBOXYHEMOGLOBIN 0.4 % (0.5-1.5); BG DEOXYHEMOGLOBIN 10.3 % (0.0-5.0); BG FRACTION INSPIRED OXYGEN 21; BG HCO3 ACT 28.5 mmol/L (22.0-26.0); BG METHEMOGLOBIN 0.2 % (0.0-1.5); BG OXYGEN SATURATION 89.6 % (92.0-98.5); BG OXYHEMOGLOBIN 89.1 % (94.0-97.0); BG PO2 56.4 mmHg (75.0-100.0); BG SAMPLE SITE RIGHT BRACHIAL; BG TOTAL HEMOGLOBIN 10.9 g/dL (12.0-18.0); BG VENT MODE ROOM AIR
[2019-10-16] MEDS: METOPROLOL TARTRATE 25MG TABLET PO SCH ×2 (09:51→21:15)
[2019-10-16] MEDS: CARBAMAZEPINE 200MG TABLET PO SCH ×3 (09:52→17:26)
[2019-10-16] MEDS: LAMOTRIGINE 100MG TABLET PO SCH ×2 (09:52→17:00)
[2019-10-16] MEDS: LEVETIRACETAM 1,000 MG in SODIUM CHLORIDE 0.9% 100 ML IV SCH ×2 (09:53→21:15)
[2019-10-16] MEDS: DEXT 5%/0.9% NACL 1,000 ML IV SCH ×2 (09:53→13:58)
[2019-10-16 10:51] LABS: HEMATOCRIT. 32.9 % (36.0-48.0); HEMOGLOBIN. 11.1 g/dL (12.0-16.0); MEAN CORPUSCULAR HEMOGLOBIN 34.1 pg (28.0-32.0); MEAN CORPUSCULAR VOLUME 101.4 fL (81.0-99.0); MEAN PLATELET VOLUME 6.4 fl (7.4-10.4); PLATELET 433 x1000/uL (130-400); RED BLOOD CELL COUNT 3.25 mill/uL (4.2-5.4); RED CELL DISTRIBUTION WIDTH 12.7 % (11.6-14.6)
[2019-10-16 12:00] VITALS: BP 144/59
[2019-10-16 13:12] LABS: NUCLEATED RED BLOOD CELLS 1 /100 WBC; PLATELET ESTIMATE NORMAL
[2019-10-16] MEDS ORDERED: LAM2 MT (15:28)
[2019-10-16] MEDS ORDERED: CARB200T6 PO (15:28)
[2019-10-16] MEDS ORDERED: LEVE1000 MT (15:28)
[2019-10-16] MEDS ORDERED: CARB200T6 MT (15:28)
[2019-10-16] MEDS ORDERED: LEVO500T2 MT (15:28)
[2019-10-16 16:00] VITALS: BP 140/65
[2019-10-16] MEDS: VANCOMYCIN 1 G PREMIX 200 ML IV SCH (16:00)
[2019-10-16 20:00] VITALS: BP 137/77
[2019-10-16] MEDS: PHENYTOIN SODIUM EXTENDED 100MG CAPSULE PO SCH (21:15)
[2019-10-17] VITALS: BP 140/69
[2019-10-17] MEDS: PIPERACILLIN/TAZOBACTAM 3.375 G in DEXT 5% WATER 100 ML IV SCH ×2 (00:18→05:10)
[2019-10-17] MEDS: IPRATROPIUM/ALBUTEROL 0.5-3(2.5)MG/3ML NEB HHN SCH ×3 (01:13→14:15)
[2019-10-17] MEDS: VANCOMYCIN 1 G PREMIX 200 ML IV SCH ×2 (02:11→11:21)
[2019-10-17 04:00] VITALS: BP 136/78
[2019-10-17 06:38] LABS: CHLORIDE 102 mEq/L (98-107)
[2019-10-17 06:43] LABS: HEMATOCRIT. 33.2 % (36.0-48.0); HEMOGLOBIN. 11.3 g/dL (12.0-16.0); MEAN CORPUSCULAR HEMOGLOBIN 34.2 pg (28.0-32.0); MEAN CORPUSCULAR VOLUME 100.6 fL (81.0-99.0); MEAN PLATELET VOLUME 7.1 fl (7.4-10.4); PLATELET 484 x1000/uL (130-400); RED CELL DISTRIBUTION WIDTH 12.5 % (11.6-14.6)
[2019-10-17 08:00] VITALS: BP 139/71
[2019-10-17] MEDS: LEVOTHYROXINE SODIUM 88MCG TABLET PO SCH (09:19)
[2019-10-17] MEDS: CARBAMAZEPINE 200MG TABLET PO SCH ×2 (09:19→14:06)
[2019-10-17] MEDS: LAMOTRIGINE 100MG TABLET PO SCH (09:19)
[2019-10-17] MEDS: METOPROLOL TARTRATE 25MG TABLET PO SCH (09:20)
[2019-10-17 09:46] LABS: BG BASE EXCESS 3.8 mmol/L (-2.0-2.0); BG CARBOXYHEMOGLOBIN 0.6 % (0.5-1.5); BG FRACTION INSPIRED OXYGEN 21; BG METHEMOGLOBIN 0.1 % (0.0-1.5); BG OXYHEMOGLOBIN 96.3 % (94.0-97.0); BG PCO2 40.5 mmHg (35.0-45.0); BG PH 7.457 (7.350-7.450); BG PO2 93.8 mmHg (75.0-100.0); BG SAMPLE SITE RIGHT BRACHIAL; BG TOTAL HEMOGLOBIN 11.3 g/dL (12.0-18.0); BG VENT MODE ROOM AIR
[2019-10-17 10:26] LABS: PLATELET ESTIMATE INCREASED
[2019-10-17 11:50] VITALS: BP 139/71
[2019-10-17 12:00] VITALS: BP 144/75
[2019-10-17] MEDS ORDERED: POTASSIUM CHLORIDE 20MEQ TABLET SR PO SCH (13:00)
== END 2019-10-17 14:40 | disposition home or self-care (01) | DRG 208 ==
LOC: ER 00:39 → 8WST 05:57 → ENRESERV 07:26 → CVICU 11:28 → 3WST 10-14 22:15 → CVICU 10-14 22:47 → 7WST 10-15 23:41
PROVIDERS: ADMIT Internal Medicine; ATTEND Internal Medicine
PROC: 0BH17EZ Insertion of Endotracheal Airway into Trachea, Via Natural or Artificial Opening (ICD-10-PCS; principal; 2019-10-13)
PROC: 5A1945Z Respiratory Ventilation, 24-96 Consecutive Hours (ICD-10-PCS; 2019-10-13)
PROC: 02HV33Z Insertion of Infusion Device into Superior Vena Cava, Percutaneous Approach (ICD-10-PCS; 2019-10-13)
PROC: B548ZZA Ultrasonography of Superior Vena Cava, Guidance (ICD-10-PCS; 2019-10-13)
DX: J96.00 Acute respiratory failure, unspecified whether with hypoxia or hypercapnia (principal); J69.0 Pneumonitis due to inhalation of food and vomit; G93.41 Metabolic encephalopathy; E87.3 Alkalosis; E72.20 Disorder of urea cycle metabolism, unspecified; M62.82 Rhabdomyolysis; E03.9 Hypothyroidism, unspecified; D64.9 Anemia, unspecified; E86.0 Dehydration; R41.3 Other amnesia; D72.829 Elevated white blood cell count, unspecified; G35 Multiple sclerosis; G40.909 Epilepsy, unspecified, not intractable, without status epilepticus; Z79.899 Other long term (current) drug therapy
CPT/HCPCS: 31500; 36415; 36573; 36600; 70551; 71045; 80048; 80156; 80185; 80202; 80305; 80320; 81003; 82140; 82375; 82542; 82550; 82553; 82805; 82962; 84478; 84484; 85027; 87070; 92610; 94002; 94003; 94640; 97162; 97166; 97530; 99285; A6261; C1725; J0330; J1165; J1953; J2060; J2543; J2704; J3370; J3490; J7042; J7050; J7060; J7620; A4315; G0480

== ENCOUNTER 2020-07-26 05:29 | Inpatient (IN) | payer MEDICARE, MEDICAID ==
[~2020-07-26] VITALS: Ht 162.6 cm; Wt 50.5 kg
[2020-07-26] VITALS (18 sets, daily range): BP systolic 106–125; BP diastolic 45–86
[~2020-07-26 05:29] MED LIST changes: +CARB200T6 MT; +CARB200T6 PO; +LAM2 MT; +LEVE1000 MT; +LEVO500T2 MT
[2020-07-26] MEDS ORDERED: ACETAMINOPHEN 650MG SUPP PR STA (05:52)
[2020-07-26 05:59] LABS: HEMATOCRIT. 32.7 % (36.0-48.0); HEMOGLOBIN. 11.2 g/dL (12.0-16.0); MEAN CORPUSCULAR HEMOGLOBIN 34.8 pg (28.0-32.0); MEAN CORPUSCULAR VOLUME 101.8 fL (81.0-99.0); MEAN PLATELET VOLUME 6.6 fl (7.4-10.4); PLATELET 648 x1000/uL (130-400); RED BLOOD CELL COUNT 3.21 mill/uL (4.2-5.4); RED CELL DISTRIBUTION WIDTH 13.5 % (11.6-14.6)
[2020-07-26 06:07] LABS: CHLORIDE 103 mEq/L (98-107)
[2020-07-26 06:09] LABS: INR 1.2; PROTHROMBIN TIME 12.4 sec (9.6-11.0)
[2020-07-26 06:28] LABS: CLARITY URINE CLOUDY (CLEAR); COLOR URINE DARK YELLOW (YELLOW); KETONES URINE 1+ (NEGATIVE); LEUKOCYTE ESTERASE URINE TRACE (NEGATIVE); NITRITE URINE NEGATIVE (NEGATIVE); OCCULT BLOOD URINE NEGATIVE (NEGATIVE); PROTEIN URINE 3+ (NEGATIVE); SPECIFIC GRAVITY URINE 1.028 (1.005-1.030)
[2020-07-26 06:42] LABS: NUCLEATED RED BLOOD CELLS 2 /100 WBC; PLATELET ESTIMATE INCREASED
[2020-07-26] MEDS ORDERED: VANCOMYCIN 1 G PREMIX 200 ML IV ONE (06:45)
[2020-07-26] MEDS ORDERED: SODIUM CHLORIDE 0.9% 1000ML BAG (SEPSIS BOLUS) IV ONE (06:45)
[2020-07-26] MEDS ORDERED: PIPERACILLIN/TAZ 3.375G PREMIX 50 ML IV ONE (06:45)
[2020-07-26] MEDS ORDERED: PROPOFOL 10MG/ML 100ML 100 ML IV ONE (07:00)
[2020-07-26 08:25] LABS: BG BASE EXCESS -2.4 mmol/L (-2.0-2.0); BG CARBOXYHEMOGLOBIN 0.1 % (0.5-1.5); BG DEOXYHEMOGLOBIN 3.6 % (0.0-5.0); BG HCO3 ACT 21.4 mmol/L (22.0-26.0); BG METHEMOGLOBIN 0.3 % (0.0-1.5); BG OXYGEN SATURATION 96.4 % (92.0-98.5); BG PCO2 33.3 mmHg (35.0-45.0); BG PH 7.426 (7.350-7.450); BG PO2 330.6 mmHg (75.0-100.0); BG SAMPLE SITE RIGHT BRACHIAL; BG TIDAL VOLUME(mL) 450 mL; BG TOTAL HEMOGLOBIN 10.1 g/dL (12.0-18.0); BG VENT MODE VENT - A/C; BG VENT RATE 16 set
[2020-07-26 09:04] LABS: CHLORIDE 106 mEq/L (98-107)
[2020-07-26] MEDS ORDERED: ETOMIDATE 2MG/ML 10ML VIAL IV ONE (11:58)
[2020-07-26] MEDS ORDERED: VECURONIUM BROMIDE 10 MG/VIAL IV ONE (11:58)
[2020-07-26] MEDS ORDERED: SODIUM CHLORIDE 0.9% 10ML VIAL ONE (11:58)
[2020-07-26] MEDS ORDERED: ACETAMINOPHEN 325MG TABLET NG PRN (16:00)
[2020-07-26] MEDS ORDERED: CLONIDINE 0.1MG TABLET NG PRN (16:00)
[2020-07-26] MEDS ORDERED: ONDANSETRON HCL 4MG/2ML INJ IV PRN (16:00)
[2020-07-26] MEDS ORDERED: CEFTRIAXONE 1 G PREMIX 50 ML IV SCH (16:00)
[2020-07-26] MEDS ORDERED: DIPHENHYDRAMINE 50MG/ML VIAL IV PRN (16:00)
[2020-07-26] MEDS ORDERED: CEFTRIAXONE 1 G PREMIX 50 ML IV NR (16:15)
[2020-07-26] MEDS: ACETAMINOPHEN 325MG TABLET NG PRN (16:44)
[2020-07-26] MEDS ORDERED: LEVETIRACETAM 1000MG/100ML 100 ML IV SCH (16:45)
[2020-07-26] MEDS ORDERED: PNEUMOCOCCAL 23-VAL P-SAC VAC 0.5 ML IM ONE (18:45)
[2020-07-26] MEDS: DEXT 5%/0.45% NACL 1000ML 1,000 ML IV SCH (18:47)
[2020-07-26] MEDS ORDERED: CEFTRIAXONE 1,000 MG in DEXTROSE 5% WATER 50 ML IV NR (20:00)
[2020-07-26] MEDS: CARBAMAZEPINE 200MG/10ML UDC NG SCH ×2 (20:14→23:37)
[2020-07-26] MEDS ORDERED: MIDAZOLAM HCL 5 MG/5 ML VIAL IV PRN (21:00)
[2020-07-26] MEDS ORDERED: MIDAZOLAM HCL 2 MG/2 ML VIAL IV PRN (21:15)
[2020-07-26] MEDS: FAMOTIDINE 20MG/2ML VIAL IV SCH (21:19)
[2020-07-26] MEDS: LEVETIRACETAM 1,000 MG in SODIUM CHLORIDE 0.9% 100 ML IV SCH (21:19)
[2020-07-26] MEDS: LAMOTRIGINE 100MG TABLET NG SCH (21:19)
[2020-07-27] VITALS (95 sets, daily range): BP systolic 108–153; BP diastolic 37–103
[2020-07-27] MEDS: DEXT 5%/0.45% NACL 1000ML 1,000 ML IV SCH ×3 (03:57→15:59)
[2020-07-27 05:42] LABS: BASOPHILS % 0.2 % (0.0-2.0); EOSINOPHILS % 0.1 % (0.0-5.0); HEMATOCRIT. 34.1 % (36.0-48.0); HEMOGLOBIN. 11.2 g/dL (12.0-16.0); LYMPHOCYTES % 8.3 % (20.0-50.0); MEAN CORPUSCULAR HEMOGLOBIN 33.8 pg (28.0-32.0); MEAN CORPUSCULAR VOLUME 102.8 fL (81.0-99.0); MEAN PLATELET VOLUME 7.2 fl (7.4-10.4); MONOCYTES % 8.4 % (2.0-8.0); PLATELET 542 x1000/uL (130-400); RED BLOOD CELL COUNT 3.32 mill/uL (4.2-5.4); RED CELL DISTRIBUTION WIDTH 13.6 % (11.6-14.6)
[2020-07-27] MEDS: CARBAMAZEPINE 200MG/10ML UDC NG SCH ×4 (05:56→23:36)
[2020-07-27] MEDS: LEVOTHYROXINE SODIUM 88MCG TABLET NG SCH (05:56)
[2020-07-27 06:00] LABS: CHLORIDE 104 mEq/L (98-107)
[2020-07-27 06:05] LABS: PHOSPHORUS 1.7 mg/dL (2.5-4.9)
[2020-07-27 06:07] LABS: CREATINE KINASE 328 IU/L (26-192)
[2020-07-27 06:28] LABS: CARBAMAZEPINE 12.1 ug/mL (4-12)
[2020-07-27] MEDS: IPRATROPIUM/ALBUTEROL 0.5-3(2.5)MG/3ML NEB NEB PRN ×2 (08:38→11:59)
[2020-07-27] MEDS ORDERED: LEVETIRACETAM 1,000 MG in SODIUM CHLORIDE 0.9% 100 ML IV SCH (09:00)
[2020-07-27] MEDS: LAMOTRIGINE 100MG TABLET NG SCH ×2 (09:20→20:29)
[2020-07-27] MEDS: FAMOTIDINE 20MG/2ML VIAL IV SCH ×2 (09:21→20:29)
[2020-07-27] MEDS: LEVETIRACETAM 1,000 MG in SODIUM CHLORIDE 0.9% 100 ML IV SCH ×2 (09:59→20:39)
[2020-07-27] MEDS: LORAZEPAM 2MG/ML CPJ IV PRN ×2 (10:01→23:32)
[2020-07-27] MEDS ORDERED: CEFTRIAXONE 1,000 MG in DEXTROSE 5% WATER 50 ML IV SCH (14:00)
[2020-07-27] MEDS: CEFTRIAXONE 1,000 MG in DEXTROSE 5% WATER 50 ML IV SCH (15:55)
[2020-07-27] MEDS: ACETAMINOPHEN 325MG TABLET NG PRN (20:29)
[2020-07-28] VITALS (53 sets, daily range): BP systolic 114–157; BP diastolic 56–92
[2020-07-28] MEDS: DEXT 5%/0.45% NACL 1000ML 1,000 ML IV SCH ×3 (01:08→15:54)
[2020-07-28] MEDS: LEVOTHYROXINE SODIUM 88MCG TABLET NG SCH (05:44)
[2020-07-28] MEDS: CARBAMAZEPINE 200MG/10ML UDC NG SCH ×2 (05:44→12:00)
[2020-07-28] MEDS: IPRATROPIUM/ALBUTEROL 0.5-3(2.5)MG/3ML NEB NEB PRN (08:05)
[2020-07-28] MEDS: LAMOTRIGINE 100MG TABLET NG SCH ×2 (08:21→22:08)
[2020-07-28] MEDS: FAMOTIDINE 20MG/2ML VIAL IV SCH ×2 (08:21→22:09)
[2020-07-28] MEDS: LEVETIRACETAM 1,000 MG in SODIUM CHLORIDE 0.9% 100 ML IV SCH ×2 (08:21→22:08)
[2020-07-28] MEDS: CEFTRIAXONE 1,000 MG in DEXTROSE 5% WATER 50 ML IV SCH (14:10)
[2020-07-28] MEDS: LORAZEPAM 2MG/ML CPJ IV PRN (15:02)
[2020-07-29] VITALS (24 sets, daily range): BP systolic 118–160; BP diastolic 57–108
[2020-07-29] MEDS: CARBAMAZEPINE 200MG/10ML UDC NG SCH ×2 (01:31→06:00)
[2020-07-29] MEDS: DEXT 5%/0.45% NACL 1000ML 1,000 ML IV SCH ×4 (01:32→15:26)
[2020-07-29] MEDS ORDERED: DEXTROSE 50% WATER 50ML SYRINGE IV PRN ×2 (06:15)
[2020-07-29] MEDS: LEVOTHYROXINE SODIUM 88MCG TABLET NG SCH (07:50)
[2020-07-29] MEDS: FAMOTIDINE 20MG/2ML VIAL IV SCH ×2 (09:20→21:22)
[2020-07-29] MEDS: LAMOTRIGINE 100MG TABLET NG SCH ×2 (09:20→21:22)
[2020-07-29] MEDS: LEVETIRACETAM 1,000 MG in SODIUM CHLORIDE 0.9% 100 ML IV SCH ×2 (10:11→21:22)
[2020-07-29 10:40] LABS: BG BASE EXCESS 1.3 mmol/L (-2.0-2.0); BG CARBOXYHEMOGLOBIN 0.2 % (0.5-1.5); BG DEOXYHEMOGLOBIN 4.2 % (0.0-5.0); BG FRACTION INSPIRED OXYGEN 40; BG HCO3 ACT 24.5 mmol/L (22.0-26.0); BG METHEMOGLOBIN 0.1 % (0.0-1.5); BG OXYGEN SATURATION 95.8 % (92.0-98.5); BG OXYHEMOGLOBIN 95.5 % (94.0-97.0); BG PH 7.488 (7.350-7.450); BG PO2 163.1 mmHg (75.0-100.0); BG SAMPLE SITE RIGHT BRACHIAL; BG TIDAL VOLUME(mL) 450 mL; BG TOTAL HEMOGLOBIN 8.9 g/dL (12.0-18.0); BG VENT MODE VENT - A/C; BG VENT RATE 16 set
[2020-07-29 12:15] LABS: BASOPHILS % 0.1 % (0.0-2.0); EOSINOPHILS % 0.5 % (0.0-5.0); HEMATOCRIT. 29.3 % (36.0-48.0); LYMPHOCYTES % 15.3 % (20.0-50.0); MEAN CORPUSCULAR HEMOGLOBIN 34.8 pg (28.0-32.0); MEAN CORPUSCULAR VOLUME 101.7 fL (81.0-99.0); MEAN PLATELET VOLUME 6.7 fl (7.4-10.4); MONOCYTES % 8.2 % (2.0-8.0); NEUTROPHILS % 75.9 % (40.0-76.0); PLATELET 330 x1000/uL (130-400); RED BLOOD CELL COUNT 2.88 mill/uL (4.2-5.4); RED CELL DISTRIBUTION WIDTH 14.1 % (11.6-14.6)
[2020-07-29 12:22] LABS: CHLORIDE 110 mEq/L (98-107)
[2020-07-29] MEDS: CEFTRIAXONE 1,000 MG in DEXTROSE 5% WATER 50 ML IV SCH (13:59)
[2020-07-29 14:21] LABS: BG BASE EXCESS -0.5 mmol/L (-2.0-2.0); BG CARBOXYHEMOGLOBIN 0.3 % (0.5-1.5); BG DEOXYHEMOGLOBIN 4.1 % (0.0-5.0); BG FRACTION INSPIRED OXYGEN 40; BG HCO3 ACT 22.6 mmol/L (22.0-26.0); BG METHEMOGLOBIN 0.1 % (0.0-1.5); BG OXYGEN SATURATION 95.9 % (92.0-98.5); BG OXYHEMOGLOBIN 95.5 % (94.0-97.0); BG PCO2 31.1 mmHg (35.0-45.0); BG PO2 160.9 mmHg (75.0-100.0); BG PRESSURE SUPPORT 10; BG SAMPLE SITE RIGHT RADIAL; BG TOTAL HEMOGLOBIN 8.9 g/dL (12.0-18.0); BG VENT MODE VENT - CPAP
[2020-07-29] MEDS ORDERED: MORPHINE SULFATE 2 MG/ML CPJ (NOT FOR IM USE) IV PRN (16:15)
[2020-07-29] MEDS ORDERED: ENOXAPARIN 40MG/0.4ML SYR SUBCUT SCH (17:00)
[2020-07-29] MEDS ORDERED: POTASSIUM CHLORIDE INJ 40 MEQ in DEXT 5% WATER 250 ML IV SCH (18:00)
[2020-07-29 18:10] LABS: BG BASE EXCESS 3.7 mmol/L (-2.0-2.0); BG CARBOXYHEMOGLOBIN 0.3 % (0.5-1.5); BG DEOXYHEMOGLOBIN 4.4 % (0.0-5.0); BG FRACTION INSPIRED OXYGEN 35; BG HCO3 ACT 27.1 mmol/L (22.0-26.0); BG METHEMOGLOBIN 0.1 % (0.0-1.5); BG OXYGEN SATURATION 95.6 % (92.0-98.5); BG OXYHEMOGLOBIN 95.2 % (94.0-97.0); BG PCO2 36.1 mmHg (35.0-45.0); BG PH 7.493 (7.350-7.450); BG PO2 134.9 mmHg (75.0-100.0); BG SAMPLE SITE RIGHT BRACHIAL; BG VENT MODE MASK - AEROSOL
[2020-07-29] MEDS: PIPERACILLIN/TAZOBACTAM 3.375 G in DEXT 5% WATER 100 ML IV SCH (21:23)
[2020-07-30] VITALS (23 sets, daily range): BP systolic 76–150; BP diastolic 50–102
[2020-07-30] MEDS: PIPERACILLIN/TAZOBACTAM 3.375 G in DEXT 5% WATER 100 ML IV SCH ×5 (01:43→23:33)
[2020-07-30 06:21] LABS: BASOPHILS % 0.3 % (0.0-2.0); HEMATOCRIT. 24.7 % (36.0-48.0); HEMOGLOBIN. 8.3 g/dL (12.0-16.0); LYMPHOCYTES % 17.1 % (20.0-50.0); MEAN CORPUSCULAR HEMOGLOBIN 34.1 pg (28.0-32.0); MEAN CORPUSCULAR VOLUME 102.2 fL (81.0-99.0); MEAN PLATELET VOLUME 6.8 fl (7.4-10.4); MONOCYTES % 10.8 % (2.0-8.0); NEUTROPHILS % 70.8 % (40.0-76.0); PLATELET 284 x1000/uL (130-400); RED BLOOD CELL COUNT 2.42 mill/uL (4.2-5.4); RED CELL DISTRIBUTION WIDTH 13.5 % (11.6-14.6)
[2020-07-30] MEDS: DEXT 5%/0.45% NACL 1000ML 1,000 ML IV SCH ×2 (06:51→22:48)
[2020-07-30 06:56] LABS: CHLORIDE 110 mEq/L (98-107)
[2020-07-30 07:07] LABS: T4 FREE 1.13 ng/dL (0.76-1.46)
[2020-07-30 08:21] LABS: BG BASE EXCESS 0.3 mmol/L (-2.0-2.0); BG CARBOXYHEMOGLOBIN 0.2 % (0.5-1.5); BG FRACTION INSPIRED OXYGEN 30; BG HCO3 ACT 23.1 mmol/L (22.0-26.0); BG METHEMOGLOBIN 0.1 % (0.0-1.5); BG OXYHEMOGLOBIN 95.7 % (94.0-97.0); BG PCO2 30.8 mmHg (35.0-45.0); BG PH 7.492 (7.350-7.450); BG PO2 202.7 mmHg (75.0-100.0); BG SAMPLE SITE LEFT BRACHIAL; BG TOTAL HEMOGLOBIN 10.8 g/dL (12.0-18.0); BG VENT MODE NASAL CANNULA
[2020-07-30] MEDS: FAMOTIDINE 20MG/2ML VIAL IV SCH ×2 (08:30→21:02)
[2020-07-30] MEDS: LAMOTRIGINE 100MG TABLET NG SCH ×2 (08:30→21:02)
[2020-07-30] MEDS: LEVOTHYROXINE SODIUM 88MCG TABLET NG SCH (08:30)
[2020-07-30] MEDS: LEVETIRACETAM 1,000 MG in SODIUM CHLORIDE 0.9% 100 ML IV SCH ×2 (08:30→21:02)
[2020-07-30] MEDS ORDERED: LACTULOSE 20G/30ML UDC PO SCH (10:30)
[2020-07-30] MEDS ORDERED: POTASSIUM CHLORIDE INJ 40 MEQ in DEXT 5% WATER 250 ML IV SCH (12:00)
[2020-07-30 13:38] LABS: HEMATOCRIT 25.9 % (36.0-48.0); HEMOGLOBIN 8.8 g/dL (12.0-16.0)
[2020-07-30] MEDS: ACETAMINOPHEN 325MG TABLET NG PRN (14:10)
[2020-07-30] MEDS ORDERED: LORAZEPAM 2MG/ML CPJ IV PRN (16:00)
[2020-07-30] MEDS: CARBAMAZEPINE 200MG TABLET PO SCH (21:02)
[2020-07-31] VITALS: BP 109/65
[2020-07-31 04:00] VITALS: BP 117/60
[2020-07-31] MEDS: PIPERACILLIN/TAZOBACTAM 3.375 G in DEXT 5% WATER 100 ML IV SCH ×3 (05:43→18:43)
[2020-07-31 06:03] LABS: CHLORIDE 109 mEq/L (98-107)
[2020-07-31] MEDS: LEVOTHYROXINE SODIUM 88MCG TABLET NG SCH (06:28)
[2020-07-31 06:31] LABS: BASOPHILS % 0.2 % (0.0-2.0); EOSINOPHILS % 3.6 % (0.0-5.0); HEMATOCRIT. 24.2 % (36.0-48.0); LYMPHOCYTES % 17.8 % (20.0-50.0); MEAN CORPUSCULAR HEMOGLOBIN 33.9 pg (28.0-32.0); MEAN CORPUSCULAR VOLUME 102.8 fL (81.0-99.0); MONOCYTES % 11.1 % (2.0-8.0); NEUTROPHILS % 67.3 % (40.0-76.0); PLATELET 298 x1000/uL (130-400); RED BLOOD CELL COUNT 2.35 mill/uL (4.2-5.4); RED CELL DISTRIBUTION WIDTH 13.2 % (11.6-14.6)
[2020-07-31 08:00] VITALS: BP 119/63
[2020-07-31] MEDS: FAMOTIDINE 20MG/2ML VIAL IV SCH ×2 (08:44→20:45)
[2020-07-31] MEDS: DEXT 5%/0.45% NACL 1000ML 1,000 ML IV SCH ×2 (08:44→20:51)
[2020-07-31] MEDS: LEVETIRACETAM 1,000 MG in SODIUM CHLORIDE 0.9% 100 ML IV SCH ×2 (08:44→21:21)
[2020-07-31] MEDS: CARBAMAZEPINE 200MG TABLET PO SCH ×2 (08:44→20:54)
[2020-07-31] MEDS: LAMOTRIGINE 100MG TABLET NG SCH ×2 (08:44→20:54)
[2020-07-31 12:00] VITALS: BP 112/65
[2020-07-31] MEDS ORDERED: POTASSIUM CHLORIDE INJ 40 MEQ in DEXT 5% WATER 250 ML IV ONE (12:30)
[2020-07-31 16:00] VITALS: BP 109/56
[2020-07-31 19:06] LABS: LEVETIRACETAM / KEPPRA 16.3 ug/mL (10.0-40.0)
[2020-07-31 20:00] VITALS: BP 113/62
[2020-07-31] MEDS ORDERED: ACETAMINOPHEN 650MG/20.3ML UDC NG PRN ×2 (20:45)
[2020-08-01] VITALS: BP 114/61
[2020-08-01] MEDS: PIPERACILLIN/TAZOBACTAM 3.375 G in DEXT 5% WATER 100 ML IV SCH ×3 (00:21→13:27)
[2020-08-01 04:00] VITALS: BP 109/56
[2020-08-01] MEDS: LEVOTHYROXINE SODIUM 88MCG TABLET NG SCH (06:20)
[2020-08-01 07:14] LABS: HEMOGLOBIN 8.1 g/dL (12.0-16.0); MEAN CORPUSCULAR HEMOGLOBIN 34.5 pg (28.0-32.0); MEAN CORPUSCULAR VOLUME 102.5 fL (81.0-99.0); PLATELET 345 x1000/uL (130-400); RED BLOOD CELL COUNT 2.34 mill/uL (4.2-5.4); RED CELL DISTRIBUTION WIDTH 13.6 % (11.6-14.6)
[2020-08-01 07:18] LABS: CHLORIDE 109 mEq/L (98-107)
[2020-08-01 08:00] VITALS: BP 138/64
[2020-08-01] MEDS: DEXT 5%/0.45% NACL 1000ML 1,000 ML IV SCH (08:44)
[2020-08-01] MEDS: LEVETIRACETAM 1,000 MG in SODIUM CHLORIDE 0.9% 100 ML IV SCH (08:45)
[2020-08-01] MEDS: FAMOTIDINE 20MG/2ML VIAL IV SCH (08:45)
[2020-08-01] MEDS: CARBAMAZEPINE 200MG TABLET PO SCH ×2 (08:46→13:26)
[2020-08-01] MEDS: LAMOTRIGINE 100MG TABLET NG SCH ×2 (08:46→13:26)
[2020-08-01 12:00] VITALS: BP 133/78
[2020-08-01] MEDS ORDERED: CARB200C7 PO (13:19)
[2020-08-01] MEDS ORDERED: AMOX-424 MT (13:19)
[2020-08-01] MEDS ORDERED: CARBAMAZEPINE 100MG TABLET CHEW PO NR (13:30)
[2020-08-01 15:35] VITALS: BP 133/78
[2020-08-01 16:00] VITALS: BP 135/76
[2020-08-01] MEDS ORDERED: CARBAMAZEPINE 200MG TABLET PO SCH (21:00)
== END 2020-08-01 17:31 | disposition home or self-care (01) | DRG 208 ==
LOC: ER 05:29 → EDBEDREQSVC 07:32 → EDBEDREQ 07:32 → EDBEDREQTM 07:32 → MICUNO 09:01 → EDBEDREQTM 09:31 → EDBEDREQ 09:31 → ENRESERV 15:56 → MICUNO 19:00 → CVICU 07-28 08:39 → 6WST 07-30 22:00
PROVIDERS: ADMIT Internal Medicine; ATTEND Internal Medicine
PROC: 0BH17EZ Insertion of Endotracheal Airway into Trachea, Via Natural or Artificial Opening (ICD-10-PCS; principal; 2020-07-26)
PROC: 5A1945Z Respiratory Ventilation, 24-96 Consecutive Hours (ICD-10-PCS; 2020-07-26)
PROC: 02HV33Z Insertion of Infusion Device into Superior Vena Cava, Percutaneous Approach (ICD-10-PCS; 2020-07-27)
PROC: B548ZZA Ultrasonography of Superior Vena Cava, Guidance (ICD-10-PCS; 2020-07-27)
PROC: 0DH673Z Insertion of Infusion Device into Stomach, Via Natural or Artificial Opening (ICD-10-PCS; 2020-07-29)
PROC: 4A00X4Z Measurement of Central Nervous Electrical Activity, External Approach (ICD-10-PCS; 2020-07-29)
DX: J96.00 Acute respiratory failure, unspecified whether with hypoxia or hypercapnia (principal); J69.0 Pneumonitis due to inhalation of food and vomit; N39.0 Urinary tract infection, site not specified; K56.699 Other intestinal obstruction unspecified as to partial versus complete obstruction; K92.2 Gastrointestinal hemorrhage, unspecified; G40.909 Epilepsy, unspecified, not intractable, without status epilepticus; G35 Multiple sclerosis; D25.9 Leiomyoma of uterus, unspecified; D50.9 Iron deficiency anemia, unspecified; E03.9 Hypothyroidism, unspecified; R73.9 Hyperglycemia, unspecified; E87.6 Hypokalemia; E88.09 Other disorders of plasma-protein metabolism, not elsewhere classified; K80.20 Calculus of gallbladder without cholecystitis without obstruction; Z74.01 Bed confinement status; Z79.899 Other long term (current) drug therapy; Z78.1 Physical restraint status; D72.829 Elevated white blood cell count, unspecified
CPT/HCPCS: 36415; 36600; 71045; 74018; 74176; 76937; 80048; 80053; 80156; 81003; 82140; 82270; 82375; 82542; 82550; 82805; 82962; 83605; 83735; 84100; 84145; 84439; 84443; 84481; 84484; 85014; 85018; 85025; 85027; 86850; 86900; 92610; 93005; 93970; 94002; 94003; 94640; 95816; 96365; 97162; 99291; C1725; J0696; J1953; J2060; J2250; J2543; J2704; J3370; J3480; J3490; J7030; J7050; J7060

== ENCOUNTER 2022-10-06 15:34 | Inpatient (IN) | payer MEDICARE, MEDICAID ==
[~2022-10-06] VITALS: Ht 160 cm; Wt 49.9 kg
[~2022-10-06 15:34] MED LIST changes: +CARB200C7 PO; -CARB200T6 MT; -CARB200T6 PO; -LAM2 PO; -LEVE1000 MT; -LEVO500T2 MT
[2022-10-06] MEDS ORDERED: LEVETIRACETAM 1000MG PREMIX 100 ML IV ONE (15:45)
[2022-10-06] MEDS ORDERED: IOHEXOL-350 100 ML BOTTLE ONE (16:21)
[2022-10-06] MEDS ORDERED: LORAZEPAM 2MG/ML CPJ IV ONE (16:30)
[2022-10-06 16:32] LABS: HEMOGLOBIN. 11.6 g/dL (12.0-16.0); MEAN CORPUSCULAR HEMOGLOBIN 32.7 pg (28.0-32.0); MEAN CORPUSCULAR VOLUME 98.3 fL (81.0-99.0); MEAN PLATELET VOLUME 7.5 fl (7.4-10.4); PLATELET 345 x1000/uL (130-400); RED BLOOD CELL COUNT 3.56 mill/uL (4.2-5.4); RED CELL DISTRIBUTION WIDTH 13.1 % (11.6-14.6)
[2022-10-06 16:39] LABS: CHLORIDE 98 mEq/L (98-107)
[2022-10-06 16:42] LABS: INR 1.1; PROTHROMBIN TIME 11.3 sec (9.6-11.0)
[2022-10-06 16:48] LABS: ETHANOL BLOOD < 10 mg/dL
[2022-10-06] MEDS ORDERED: LEVO50TA PO (17:15)
[2022-10-06] MEDS ORDERED: PRAV20TA57 PO (17:16)
[2022-10-06] MEDS ORDERED: TIZA-191 PO (17:17)
[2022-10-06 18:24] LABS: CLARITY URINE CLEAR (CLEAR); COLOR URINE YELLOW (YELLOW); KETONES URINE TRACE (NEGATIVE); LEUKOCYTE ESTERASE URINE NEGATIVE (NEGATIVE); NITRITE URINE NEGATIVE (NEGATIVE); OCCULT BLOOD URINE NEGATIVE (NEGATIVE); PROTEIN URINE NEGATIVE (NEGATIVE); SPECIFIC GRAVITY URINE 1.057 (1.005-1.030); UROBILINOGEN URINE 0.2 E.U./dL (0.2-1.0)
[2022-10-06 18:24] LABS: PLATELET ESTIMATE NORMAL
[2022-10-06] MEDS ORDERED: SODIUM CHLORIDE 0.9% 1000ML BAG (SEPSIS BOLUS) IV NR (18:31)
[2022-10-06] MEDS ORDERED: PIPERACILLIN/TAZ 3.375G PREMIX 50 ML IV NR (18:32)
[2022-10-06] MEDS ORDERED: VANCOMYCIN 1G PREMIX 200 ML IV NR (18:32)
[2022-10-06] MEDS ORDERED: MAGNESIUM 2 G PREMIX 50 ML IV ONE (20:30)
[2022-10-07 02:00] VITALS: BP 148/70
[2022-10-07] MEDS ORDERED: ACETAMINOPHEN 325MG TABLET PO PRN (03:15)
[2022-10-07] MEDS ORDERED: LORAZEPAM 2MG/ML CPJ IV PRN (03:15)
[2022-10-07] MEDS ORDERED: CLONIDINE 0.1MG TABLET PO PRN (03:15)
[2022-10-07] MEDS: LAMOTRIGINE 100MG TABLET PO SCH ×2 (04:53→21:25)
[2022-10-07] MEDS: CARBAMAZEPINE 200MG TABLET PO SCH ×2 (04:53→21:24)
[2022-10-07] MEDS: PIPERACILLIN/TAZOBACTAM 3.375 G in DEXTROSE 5% WATER 50 ML IV SCH ×3 (05:00→21:25)
[2022-10-07 05:41] VITALS: BP 148/70
[2022-10-07] MEDS: LEVOTHYROXINE SODIUM 50MCG TABLET PO SCH ×2 (08:06→08:31)
[2022-10-07] MEDS: LEVETIRACETAM 500MG TABLET PO SCH ×2 (08:30→21:25)
[2022-10-07] MEDS: ENOXAPARIN 40MG/0.4ML SYR SUBCUT SCH (08:30)
[2022-10-07] MEDS ORDERED: CARBAMAZEPINE 200MG TABLET PO SCH (09:00)
[2022-10-07] MEDS ORDERED: LAMOTRIGINE 100MG TABLET PO SCH (09:00)
[2022-10-07 12:00] VITALS: BP 131/64
[2022-10-07 16:00] VITALS: BP 133/66
[2022-10-07] MEDS: TIZANIDINE HCL 2MG TABLET PO SCH ×2 (16:51→16:52)
[2022-10-07 20:00] VITALS: BP 142/85
[2022-10-08 00:43] VITALS: BP 155/81
[2022-10-08] MEDS: TIZANIDINE HCL 2MG TABLET PO SCH ×3 (00:50→17:37)
[2022-10-08 04:21] VITALS: BP 136/74
[2022-10-08] MEDS: PIPERACILLIN/TAZOBACTAM 3.375 G in DEXTROSE 5% WATER 50 ML IV SCH ×3 (05:23→22:45)
[2022-10-08 08:00] VITALS: BP 108/74
[2022-10-08] MEDS: LEVETIRACETAM 500MG TABLET PO SCH ×2 (09:20→22:42)
[2022-10-08] MEDS: LAMOTRIGINE 100MG TABLET PO SCH ×2 (09:20→22:42)
[2022-10-08] MEDS: CARBAMAZEPINE 200MG TABLET PO SCH ×2 (09:22→22:43)
[2022-10-08] MEDS: ENOXAPARIN 40MG/0.4ML SYR SUBCUT SCH (09:22)
[2022-10-08 12:00] VITALS: BP 112/66
[2022-10-08 16:00] VITALS: BP 113/65
[2022-10-08 16:19] LABS: BASOPHILS % 0.4 % (0.0-2.0); EOSINOPHILS % 2.5 % (0.0-5.0); HEMATOCRIT. 34.9 % (36.0-48.0); HEMOGLOBIN. 11.8 g/dL (12.0-16.0); LYMPHOCYTES % 37.4 % (20.0-50.0); MEAN CORPUSCULAR HEMOGLOBIN 33.4 pg (28.0-32.0); MEAN CORPUSCULAR VOLUME 98.8 fL (81.0-99.0); MONOCYTES % 11.2 % (2.0-8.0); NEUTROPHILS % 48.5 % (40.0-76.0); PLATELET 335 x1000/uL (130-400); RED BLOOD CELL COUNT 3.53 mill/uL (4.2-5.4); RED CELL DISTRIBUTION WIDTH 13.4 % (11.6-14.6)
[2022-10-08 16:48] LABS: CHLORIDE 110 mEq/L (98-107)
[2022-10-08 20:00] VITALS: BP 140/77
[2022-10-09] VITALS: BP 155/79
[2022-10-09] MEDS: TIZANIDINE HCL 2MG TABLET PO SCH ×3 (01:15→18:03)
[2022-10-09 04:00] VITALS: BP 104/67
[2022-10-09] MEDS: PIPERACILLIN/TAZOBACTAM 3.375 G in DEXTROSE 5% WATER 50 ML IV SCH ×2 (06:12→14:03)
[2022-10-09] MEDS: LEVOTHYROXINE SODIUM 50MCG TABLET PO SCH (06:31)
[2022-10-09 08:00] VITALS: BP 96/59
[2022-10-09] MEDS: LEVETIRACETAM 500MG TABLET PO SCH (09:12)
[2022-10-09] MEDS: LAMOTRIGINE 100MG TABLET PO SCH (09:12)
[2022-10-09] MEDS: CARBAMAZEPINE 200MG TABLET PO SCH (09:12)
[2022-10-09] MEDS: ENOXAPARIN 40MG/0.4ML SYR SUBCUT SCH (09:12)
[2022-10-09 12:00] VITALS: BP 127/52
[2022-10-09 16:00] VITALS: BP 144/81
[2022-10-09 17:08] VITALS: BP 144/81
[2022-10-11 17:06] LABS: LEVETIRACETAM / KEPPRA 34.1 ug/mL (10.0-40.0)
== END 2022-10-10 03:35 | disposition home or self-care (01) | DRG 101 ==
LOC: ER 15:34 → MICUSO 20:31 → 6WST 10-07 01:40
PROVIDERS: ADMIT Internal Medicine; ATTEND Internal Medicine
PROC: 4A00X4Z Measurement of Central Nervous Electrical Activity, External Approach (ICD-10-PCS; principal; 2022-10-08)
DX: G40.419 Other generalized epilepsy and epileptic syndromes, intractable, without status epilepticus (principal); G93.40 Encephalopathy, unspecified; F03.90 Unspecified dementia, unspecified severity, without behavioral disturbance, psychotic disturbance, mood disturbance, and anxiety; G35 Multiple sclerosis; D72.829 Elevated white blood cell count, unspecified; E03.9 Hypothyroidism, unspecified; Z20.822 Contact with and (suspected) exposure to COVID-19; Z74.01 Bed confinement status; Z79.890 Hormone replacement therapy; Z79.899 Other long term (current) drug therapy; Z86.73 Personal history of transient ischemic attack (TIA), and cerebral infarction without residual deficits
CPT/HCPCS: 36415; 70496; 70498; 71045; 80053; 80156; 80320; 81003; 82542; 83605; 84145; 85025; 87426; 93005; 95816; 99291; C9803; J1650; J1953; J2060; J2543; J3370; J3475; J7060; Q9967; G0480

== ENCOUNTER 2023-02-27 08:34 | Inpatient (IN) | payer MEDICARE, MEDICAID ==
[~2023-02-27] VITALS: Ht 162.6 cm; Wt 47.2 kg
[~2023-02-27 08:34] MED LIST changes: +LEVO50TA PO; -LEVO88TA7 PO; +PRAV20TA57 PO; +TIZA-191 PO
[2023-02-27] MEDS ORDERED: SODIUM CHLORIDE 0.9% 1,000 ML IV ONE (09:00)
[2023-02-27] MEDS ORDERED: LEVETIRACETAM 1000MG PREMIX 100 ML IV ONE (09:00)
[2023-02-27 09:34] LABS: BASOPHILS % 0.3 % (0.0-2.0); EOSINOPHILS % 0.1 % (0.0-5.0); HEMATOCRIT. 39.4 % (36.0-48.0); HEMOGLOBIN. 13.2 g/dL (12.0-16.0); LYMPHOCYTES % 10.3 % (20.0-50.0); MEAN CORPUSCULAR HEMOGLOBIN 32.5 pg (28.0-32.0); MEAN PLATELET VOLUME 7.3 fl (7.4-10.4); MONOCYTES % 7.9 % (2.0-8.0); NEUTROPHILS % 81.4 % (40.0-76.0); PLATELET 340 x1000/uL (130-400); RED BLOOD CELL COUNT 4.07 mill/uL (4.2-5.4); RED CELL DISTRIBUTION WIDTH 13.6 % (11.6-14.6)
[2023-02-27 09:41] LABS: CHLORIDE 101 mEq/L (98-107)
[2023-02-27 09:56] LABS: CARBAMAZEPINE 9.2 ug/mL (4-12); ETHANOL BLOOD < 10 mg/dL
[2023-02-27] MEDS ORDERED: ACETAMINOPHEN 325MG TABLET PO ONE (11:00)
[2023-02-27] MEDS ORDERED: LEVETIRACETAM 1000MG PREMIX 100 ML IV NR (12:00)
[2023-02-27 16:38] VITALS: BP 156/72
[2023-02-27 16:54] VITALS: BP 156/72
[2023-02-27] MEDS: LEVETIRACETAM 500MG TABLET PO SCH (19:08)
[2023-02-27] MEDS: CARBAMAZEPINE 200MG TABLET PO SCH (19:09)
[2023-02-27] MEDS: LEVETIRACETAM 250MG TABLET PO SCH (19:09)
[2023-02-27 20:00] VITALS: BP 167/86
[2023-02-27] MEDS: LAMOTRIGINE 100MG TABLET PO SCH (20:32)
[2023-02-27] MEDS: PIPERACILLIN/TAZOBACTAM 3.375 G in DEXTROSE 5% WATER 50 ML IV SCH (20:33)
[2023-02-27] MEDS ORDERED: AMLODIPINE 10MG TABLET PO NR (22:00)
[2023-02-27] MEDS ORDERED: ACETAMINOPHEN 325MG TABLET PO PRN (22:00)
[2023-02-27] MEDS ORDERED: CLONIDINE 0.1MG TABLET PO PRN (22:00)
[2023-02-28] VITALS: BP 123/69
[2023-02-28 02:22] LABS: CLARITY URINE CLEAR (CLEAR); COLOR URINE YELLOW (YELLOW); KETONES URINE 1+ (NEGATIVE); LEUKOCYTE ESTERASE URINE NEGATIVE (NEGATIVE); NITRITE URINE NEGATIVE (NEGATIVE); OCCULT BLOOD URINE NEGATIVE (NEGATIVE); PROTEIN URINE TRACE (NEGATIVE); SPECIFIC GRAVITY URINE 1.012 (1.005-1.030); UROBILINOGEN URINE 0.2 E.U./dL (0.2-1.0)
[2023-02-28 02:35] LABS: *AMPHETAMINES SCREEN URINE NEGATIVE (NEGATIVE); *BARBITURATES SCREEN URINE NEGATIVE (NEGATIVE); *BENZODIAZEPINES SCREEN URINE PRESUMTIVE POSITIVE (NEGATIVE); *COCAINE SCREEN URINE NEGATIVE (NEGATIVE); CANNABINOID URINE SCREEN NEGATIVE (NEGATIVE); METHADONE URINE SCREEN NEGATIVE (NEGATIVE); OPIATES URINE SCREEN NEGATIVE (NEGATIVE); PHENCYCLIDINE URINE SCREEN NEGATIVE (NEGATIVE)
[2023-02-28 04:00] VITALS: BP 142/61
[2023-02-28] MEDS: PIPERACILLIN/TAZOBACTAM 3.375 G in DEXTROSE 5% WATER 50 ML IV SCH ×3 (05:01→14:06)
[2023-02-28 08:00] VITALS: BP 152/85
[2023-02-28] MEDS: CARBAMAZEPINE 200MG TABLET PO SCH ×2 (09:15→22:07)
[2023-02-28] MEDS: AMLODIPINE 10MG TABLET PO SCH (09:16)
[2023-02-28] MEDS: LEVETIRACETAM 500MG TABLET PO SCH ×2 (09:16→20:39)
[2023-02-28] MEDS: LEVETIRACETAM 250MG TABLET PO SCH ×2 (09:16→20:39)
[2023-02-28] MEDS: LAMOTRIGINE 100MG TABLET PO SCH ×2 (09:16→16:43)
[2023-02-28 12:00] VITALS: BP 123/72
[2023-02-28 16:00] VITALS: BP 118/64
[2023-02-28] MEDS ORDERED: GLAT40SY3 SQ (17:09)
[2023-02-28] MEDS ORDERED: GLATIRAMER 40 MG SQ SCH (18:00)
[2023-02-28 19:39] LABS: BASOPHILS % 0.3 % (0.0-2.0); EOSINOPHILS % 0.2 % (0.0-5.0); HEMATOCRIT. 38.5 % (36.0-48.0); LYMPHOCYTES % 18.5 % (20.0-50.0); MEAN CORPUSCULAR VOLUME 94.7 fL (81.0-99.0); MEAN PLATELET VOLUME 7.8 fl (7.4-10.4); MONOCYTES % 12.7 % (2.0-8.0); NEUTROPHILS % 68.3 % (40.0-76.0); PLATELET 366 x1000/uL (130-400); RED BLOOD CELL COUNT 4.06 mill/uL (4.2-5.4); RED CELL DISTRIBUTION WIDTH 13.5 % (11.6-14.6)
[2023-02-28 20:00] VITALS: BP 138/78
[2023-02-28 20:17] LABS: CHLORIDE 101 mEq/L (98-107)
[2023-02-28] MEDS: ENOXAPARIN 30MG/0.3ML SYR SUBCUT SCH (20:40)
[2023-03-01] VITALS: BP 148/64
[2023-03-01 04:00] VITALS: BP 142/75
[2023-03-01 08:00] VITALS: BP 152/62
[2023-03-01] MEDS: LAMOTRIGINE 100MG TABLET PO SCH ×2 (10:02→17:58)
[2023-03-01] MEDS: AMLODIPINE 10MG TABLET PO SCH (10:03)
[2023-03-01] MEDS: CARBAMAZEPINE 200MG TABLET PO SCH ×2 (10:03→20:31)
[2023-03-01] MEDS: LEVETIRACETAM 500MG TABLET PO SCH ×2 (10:04→20:30)
[2023-03-01] MEDS: LEVETIRACETAM 250MG TABLET PO SCH ×2 (10:06→20:30)
[2023-03-01 12:00] VITALS: BP 127/72
[2023-03-01 16:00] VITALS: BP 110/62
[2023-03-01 20:00] VITALS: BP 138/73
[2023-03-01] MEDS: ENOXAPARIN 30MG/0.3ML SYR SUBCUT SCH (20:31)
[2023-03-02] VITALS: BP 140/71
[2023-03-02 04:00] VITALS: BP 116/70
[2023-03-02 08:00] VITALS: BP 110/64
[2023-03-02] MEDS: LEVETIRACETAM 500MG TABLET PO SCH ×2 (09:37→21:06)
[2023-03-02] MEDS: AMLODIPINE 10MG TABLET PO SCH (09:38)
[2023-03-02] MEDS: LAMOTRIGINE 100MG TABLET PO SCH ×2 (09:38→17:00)
[2023-03-02] MEDS: CARBAMAZEPINE 200MG TABLET PO SCH ×2 (09:38→21:06)
[2023-03-02] MEDS: LEVETIRACETAM 250MG TABLET PO SCH ×2 (09:39→21:00)
[2023-03-02 12:00] VITALS: BP 115/62
[2023-03-02 12:29] LABS: HEMOGLOBIN. 12.1 g/dL (12.0-16.0); MEAN CORPUSCULAR VOLUME 95.1 fL (81.0-99.0); MEAN PLATELET VOLUME 8.1 fl (7.4-10.4); PLATELET 357 x1000/uL (130-400); RED BLOOD CELL COUNT 3.78 mill/uL (4.2-5.4); RED CELL DISTRIBUTION WIDTH 13.4 % (11.6-14.6)
[2023-03-02 12:32] LABS: CHLORIDE 102 mEq/L (98-107)
[2023-03-02 14:31] LABS: PLATELET ESTIMATE NORMAL
[2023-03-02 16:00] VITALS: BP 119/66
[2023-03-02 20:00] VITALS: BP 117/59
[2023-03-02] MEDS ORDERED: GLATOPA SUBCUT SCH (21:00)
[2023-03-02] MEDS: ENOXAPARIN 30MG/0.3ML SYR SUBCUT SCH (21:07)
[2023-03-03] VITALS: BP 128/69
[2023-03-03 04:00] VITALS: BP 136/76
[2023-03-03 08:00] VITALS: BP 132/68
[2023-03-03] MEDS: LEVETIRACETAM 500MG TABLET PO SCH (08:41)
[2023-03-03] MEDS: LAMOTRIGINE 100MG TABLET PO SCH (08:42)
[2023-03-03] MEDS: CARBAMAZEPINE 200MG TABLET PO SCH (08:42)
[2023-03-03] MEDS: LEVETIRACETAM 250MG TABLET PO SCH (08:42)
[2023-03-03] MEDS: AMLODIPINE 10MG TABLET PO SCH (08:45)
[2023-03-03 09:40] VITALS: BP_SYST 120; BP_SYST 132; BP_DIAS 65; BP_DIAS 68
[2023-03-03 10:15] VITALS: BP 132/68
[2023-03-03 12:00] VITALS: BP 120/65
[2023-03-03] MEDS ORDERED: LEVETIRACETAM 500MG TABLET PO SCH (21:00)
== END 2023-03-03 14:47 | disposition home or self-care (01) | DRG 101 ==
LOC: ER 08:36 → 7EST 11:56
PROVIDERS: ADMIT Internal Medicine; ATTEND Internal Medicine
PROC: 4A00X4Z Measurement of Central Nervous Electrical Activity, External Approach (ICD-10-PCS; principal; 2023-03-02)
DX: G40.909 Epilepsy, unspecified, not intractable, without status epilepticus (principal); E87.1 Hypo-osmolality and hyponatremia; F03.90 Unspecified dementia, unspecified severity, without behavioral disturbance, psychotic disturbance, mood disturbance, and anxiety; G35 Multiple sclerosis; I10 Essential (primary) hypertension; Z74.01 Bed confinement status
CPT/HCPCS: 36415; 71045; 80048; 80053; 80156; 80165; 80185; 80305; 80320; 81003; 82542; 84145; 85025; 93005; 95816; 99291; A6261; C1893; J1650; J1953; J2543; J7030; J7060; G0480